=== PATIENT | female | born 1935 | race Caucasian/White ===

== ENCOUNTER 2018-06-10 18:08 | Inpatient (IN) | payer OTHER ==
[~2018-06-10] VITALS: Ht 157.5 cm; Wt 55.3 kg
[~2018-06-10 18:08] MED LIST: ASPIRIN81 M4 PO; CRESTOR10 M1 PO; LEVOTHYROXINE25 MCG PO; METOPROLOL TART25 M1 PO; XANAX0.25 M1 PO
[2018-06-10 18:51] LABS: ABSOLUTE BASOPHIL COUNT 0 /CUMM (0.0-0.2); ABSOLUTE EOSINOPHIL COUNT 0.2 /CUMM (0.0-0.7); ABSOLUTE GRANULOCYTE CT 3.5 /CUMM (1.4-6.5); ABSOLUTE LYMPH COUNT 2.1 /CUMM (1.2-3.4); ABSOLUTE MONOCYTE COUNT 0.6 /CUMM (0.10-0.60); BASOPHIL % 0.6 % (0.0-2.0); EOSINOPHIL % 3.4 % (0-5); HEMATOCRIT 39.9 % (37-47); MEAN CORPUSCULAR HGB 29.2 PG (27.0-31.0); MEAN CORPUSCULAR HGB CONC 33.2 G/DL (33.0-37.0); MEAN PLATELET VOLUME 8.7 FL (7.4-10.4); PLATELET COUNT 222 /CUMM (130-400); RBC DISTRIBUTION WIDTH 13.8 % (11.5-14.5); RED BLOOD CELL CT 4.54 /CUMM (4.20-5.40); WHITE BLOOD CELL COUNT 6.4 /CUMM (4.8-10.8)
--- NOTE | 2018-06-10 18:56 | RADIOLOGY REPORT ---
EXAMINATION: PORTABLE CHEST 1 VIEW CLINICAL INFORMATION: TIA PROTOCOL COMPARISON: 10/13/2008. TECHNIQUE: Portable frontal view of the chest was obtained. FINDINGS: The lungs are well expanded. Chronic appearing reticular markings are again seen but no superimposed focal infiltrate, effusion, edema, or pneumothorax. Cardiac and mediastinal silhouettes are within normal limits for technique. No acute bony abnormality seen. Degenerative changes in the spine and shoulders. IMPRESSION: Chronic appearing changes but no superimposed airspace disease.
--- NOTE | 2018-06-10 18:56 | CT SCAN REPORT ---
EXAMINATION: CT HEAD WITHOUT CONTRAST CLINICAL INFORMATION: Rule out CVA versus TIA. Symptoms now resolved. COMPARISON: None TECHNIQUE: Contiguous axial imaging was performed from the skull base to vertex without intravenous administration of contrast. DLP: 592 mGy-cm FINDINGS: There is no evidence of acute intracranial hemorrhage or territorial infarction. No abnormal mass effect or midline shift is seen. Negron to white matter differentiation is well preserved. No extra-axial fluid collections are identified. The ventricles are normal in size. Mild periventricular white matter hypoattenuation is suspicious for a degree of ischemic microangiopathy. Mild basal ganglia calcifications. The osseous structures and soft tissues are normal. Partial opacification of the sphenoid sinus. Mastoid air cells are aerated. IMPRESSION: No acute intracranial pathology. Nonacute findings as described above.
[2018-06-10 19:00] LABS: PT 12.2 SEC (9.4-12.5); PTT 28 SEC (25-37)
--- NOTE | 2018-06-10 19:19 | ED NEURO DEFICIT/STROKE ---
History of Present Illness General Chief Complaint: General Adult Stated Complaint: "FEELT SPACEY, SLURRED SPPECH AT 3PM" Source: patient, family, old records Exam Limitations: no limitations Vital Signs & Intake/Output Vital Signs & Intake/Output Vital Signs Date Time Temp Pulse Resp B/P B/P Pulse O2 O2 Flow FiO2 Mean Ox Delivery Rate 06/10 1816 98.2 84 18 170/78 97 Room Air Allergies Coded Allergies: Sulfa (Sulfonamide Antibiotics) (UNKNOWN 07/11/17) Reconcile Medications Alprazolam (Xanax) 0.25 MG TABLET 1 TAB PO BID PRN ANXIETY Aspirin (Aspirin*) 81 MG TAB.CHEW 1 TAB PO DAILY SC Levothyroxine Sodium 25 MCG TABLET 1 TAB PO DAILY HYPOTHYROID (Reported) Metoprolol Tartrate 25 MG TABLET 25 MG PO BID Blood Pressure Rosuvastatin Calcium (Crestor) 10 MG TABLET 1 TAB PO DAILY HIGH CHOLESTEROL ( Reported) Triage Note: PRESENTS TO THE ED FOR EVALUATION AFTER SHE EXPERIENCED AN EPISODE OF FAGINESS AT APPROXIMATELY 3PM. SHE WAS UNABLE TO SPEAK FOR LESS THAN A MINUTE AND SUDDENLY THE SYMPTOMS WENT AWAY. SHE WAS RECENTLY CHANGED FROM METOPROLOL TO BISOPROLOL-HCTZ. SHE REPORTS FEELING TIRED AND CONCERNED OTHERWISE SHE FEELS HER USUSAL SELF AT THIS TIME. Triage Nurses Notes Reviewed? yes HPI: Patient states that earlier today she stood up from her chair and felt out of it. Patient didn't answer the phone and could not get any words out. Patient states that she knew she wanted to say but nothing came out. Patient states those symptoms lasted just seconds and then they resolved. Patient then felt normal. Approximately an hour later her nephew called her and her nephew stated that she was slurring her words. Patient did not notice that she was slurring her words and she denied any weakness in her face or her arms. He then called back approximately 10 minutes later and the symptoms had resolved. Patient comes in for evaluation. Patient's only complaint currently is a sinus headache that she's had since she has woken up. Patient states she has chronic sinusitis and routinely gets sinus headaches. She states that this headache is. So much all of her prior headaches. She gets an achy sensation in the frontal part of her head. There is no radiation. The pain worsens when she leans forward. She rates the pain as moderate on the scale. Past History Travel History Traveled to [place] past 21 day No Medical History Any Pertinent Medical History? 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 No Review of Systems Review of Systems Constitutional: Reports: no symptoms. EENTM: Reports: no symptoms. Respiratory: Reports: no symptoms. Cardiovascular: Reports: no symptoms. GI: Reports: no symptoms. Genitourinary: Reports: no symptoms. Musculoskeletal: Reports: no symptoms. Skin: Reports: no symptoms. Neurological/Psychological: Reports: see HPI, headache. Hematologic/Endocrine: Reports: no symptoms. Immunologic/Allergic: Reports: no symptoms. All Other Systems: Reviewed and Negative Physical Exam Physical Exam General Appearance: well developed/nourished, alert, awake, anxious, mild distress Head: atraumatic, normal appearance Eyes: Bilateral: PERRL, EOMI. Ears, Nose, Throat: normal ENT inspection, moist mucous membrane, hearing grossly normal Neck: normal inspection, supple, full range of motion Respiratory: normal breath sounds, chest non-tender, no respiratory distress, lungs clear Cardiovascular: regular rate/rhythm, normal peripheral pulses Gastrointestinal: normal bowel sounds, soft, non-tender, no organomegaly Back: normal inspection, normal range of motion Extremities: normal range of motion Psychiatric: awake, alert, oriented x 3 Cranial Nerves: normal hearing, normal speech, PERRL Coordination/Gait: normal finger to nose, normal gait Motor/Sensory: no motor/sensory deficits Core Measures CVA/TIA Diagnosis: Yes NIH Stroke Scale NIH Stroke Scale Response Value Level of Consciousness alert 0 LOC Questions answers both correctly 0 LOC Commands obeys both correctly 0 Best Gaze normal 0 Visual Vee no visual loss 0 Facial Paresis normal 0 Motor Arm - Left no drift 0 Motor Arm - Right no drift 0 Motor Leg - Left no drift 0 Motor Leg - Right no drift 0 Limb Ataxia no ataxia 0 Sensory normal 0 Best Language no aphasia 0 Dysarthria normal articulation 0 Extinction and Inattention no neglect 0 Total 0 Date Last Known Well: 06/10/18 Time Last Known Well: 1500 Symptom Start Date: 06/10/18 Symptom Start Time: 1500 tPA Risk/Benefit discussion I have discussed the risks, benefits, and alternatives of Alteplase treatment including: - If given promptly, can resolve or have major improvement in stroke symptoms. - Bleeding (hemorrhage) is the most common risk that can occur. 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 - Alternative treatments with proven benefit for patients with stroke include aspirin and care in a specialized unit where staff members pay careful attention to a variety of basic aspects of care. tPA given? No Reason tPA not given Medical Contraindication Swallow Evaluation Pass Swallow eval time 1939 Sepsis Present: No Sepsis Focused Exam Completed? No Progress Differential Diagnosis: electrolyte imbalance, intracranial Hem., migraine LYMAN, stroke Plan of Care: Orders Procedure Date/time Status Heart Healthy Diet 06/11 B Active Patient Data 06/[address] in observation 06/10 2002 Active ED Holding Orders 06/10 2002 Active Vital Signs 06/10 2002 Active Code Status 06/10 2002 Active Saline Lock 06/10 1826 Active URINALYSIS 06/10 1826 Complete PARTIAL THROMBOPLASTIN TIME 06/10 1826 Complete PROTHROMBIN TIME 06/10 182 Complete COMPREHENSIVE METABOLIC PANEL 06/10 182 Complete CBC WITHOUT DIFFERENTIAL 06/10 1826 Complete EKG 06/10 181 Active Laboratory Tests 06/10/18 1902: Urinalysis LIGHT H, Urine Color YEL, Urine Clarity HAZY H, Urine pH 6.0, Ur Specific Clifford 1.025, Urine Protein NEG, Urine Ketones NEG, Urine Nitrite NEG, Urine Bilirubin NEG, Urine Urobilinogen 0.2, Ur Leukocyte Esterase SMALL H, Ur Microscopic SEDIMENT EXAMINED, Urine RBC 1-3, Urine WBC 5-10 H, Ur Epithelial Cells FEW, Urine Bacteria FEW H, Urine Mucus FEW, Urine Hemoglobin SMALL H, Urine Glucose NEG 06/10/18 1845: Anion Gap 8, Estimated GFR > 60, BUN/Creatinine Ratio 30.0 H, Glucose 141 H, Calcium 9.4, Total Bilirubin 0.2, AST 20, ALT 25, Alkaline Phosphatase 64, Total Protein 6.9, Albumin 4.0, Globulin 2.9, Albumin/Globulin Ratio 1.4, PT 12.2, INR 1.12, APTT 28, CBC w Diff NO MAN DIFF REQ, RBC 4.54, MCV 88.0, MCH 29.2, MCHC 33.2, RDW 13.8, MPV 8.7, Gran % 54.0, Lymphocytes % 32.5, Monocytes % 9.5 H, Eosinophils % 3.4, Basophils % 0.6, Absolute Granulocytes 3.5, Absolute Lymphocytes 2.1, Absolute Monocytes 0.6, Absolute Eosinophils 0.2, Absolute Basophils 0 Diagnostic Imaging: Viewed by Me: Radiology Read, CT Scan. Discussed w/RAD: Radiology Read, CT Scan. Radiology Impression: PATIENT: DERRICK MOREAU PRESENT AGE: 83 PATIENT ACCOUNT NO: [id number] : 34 LOCATION: [facility] ORDERING PHYSICIAN: Ramana Denney DO (TBS) SERVICE DATE: 06/10/18 EXAM TYPE: CAT - CT HEAD WO IV CONTRAST EXAMINATION: CT HEAD WITHOUT CONTRAST CLINICAL INFORMATION: Rule out CVA versus TIA. Symptoms now resolved. COMPARISON : None TECHNIQUE: Contiguous axial imaging was performed from the skull base to vertex without intravenous administration of contrast. DLP: 592 mGy-cm FINDINGS: There is no evidence of acute intracranial hemorrhage or territorial infarction. No abnormal mass effect or midline shift is seen. Negron to white matter differentiation is well preserved. No extra-axial fluid collections are identified. The ventricles are normal in size. Mild periventricular white matter hypoattenuation is suspicious for a degree of ischemic microangiopathy. Mild basal ganglia calcifications. The osseous structures and soft tissues are normal. Partial opacification of the sphenoid sinus. Mastoid air cells are aerated. IMPRESSION: No acute intracranial pathology. Nonacute findings as described above. DICTATED BY: Segun Cueva MD DATE/TIME DICTATED:06/10/181847 CATCHER HELPER:DOUG DATE/TIME TRANSCRIBED:06/10/181847 CONFIDENTIAL, DO NOT COPY WITHOUT APPROPRIATE AUTHORIZATION. <Electronically signed in Other Vendor System> SIGNED BY: Segun Cueva MD 06/10/181855 CXR Impression: PATIENT: DERRICK MOREAU PRESENT AGE: 83 PATIENT ACCOUNT NO: [id number] : 34 LOCATION: [facility] ORDERING PHYSICIAN: Ramana Denney DO (TBS) SERVICE DATE: 06/10/18 EXAM TYPE: RAD - XRY-PORTABLE CHEST XRAY EXAMINATION: PORTABLE CHEST 1 VIEW CLINICAL INFORMATION: TIA PROTOCOL COMPARISON: 10/13/2008. TECHNIQUE: Portable frontal view of the chest was obtained. FINDINGS: The lungs are well expanded. Chronic appearing reticular markings are again seen but no superimposed focal infiltrate , effusion, edema, or pneumothorax. Cardiac and mediastinal silhouettes are within normal limits for technique. No acute bony abnormality seen. Degenerative changes in the spine and shoulders. IMPRESSION: Chronic appearing changes but no superimposed airspace disease. DICTATED BY: Roger Alonso MD DATE/TIME DICTATED:06/10/181850 CATCHER HELPER:DOUG DATE/TIME TRANSCRIBED:1850 CONFIDENTIAL, DO NOT COPY WITHOUT APPROPRIATE AUTHORIZATION. < Electronically signed in Other Vendor System> SIGNED BY: Roger Alonso MD 06/10/181855 Initial ED EKG: NSR, LVH, nonspecific ST T wave chg Prior EKG: unchanged Departure Departure Disposition: STILL A PATIENT Condition: Stable Clinical Impression Primary Impression: TIA (transient ischemic attack) Referrals: David Kay MD Departure Forms: Customer Survey General Discharge Information Observation Note Spoke With: Elkin Baird MD Physician Advisor Notified: KAYLEY VICTOR,MARIXA Heard Patient In: Non-ED OBS Care Area Rationale for Observation: My rational for observation is as follows [telemetry observation, telemetry monitoring, neurology consultation, neuro checks, carotid ultrasound].
--- NOTE | 2018-06-10 20:16 | History & Physical ---
Valentin Butler 06/10/18 2015: General Information and HPI MD Statement: I have seen and personally examined DERRICK MOREAU and documented this H&P. The patient is a 83 year old F who presented with a patient stated chief complaint of slurred speech. Source of Information: patient History of Present Illness: Patient is a 83 year old female with past medical history of atrial tachycardia, chronic LBBB changes on EKG, HTN, HLD who came to the ED after noticing being confused and noted slurred speech by family member on the phone. Patient was in her usual state of health until 3 PM this afternoon where she stood up from her chair and felt to be dizzy and sat down which resolved within 30 seconds. At the same time, the phone rang and patient attempted to speak to a friend over the phone and noticed her speech was slurred which lasted approximately 1 minute. Patients symptoms resolved spontaneously afterwards. At 5PM, patients grandson had called the home and stated "you are speaking like you are drunk" and advised her to go to the hospital but not to drive herself. He called back within 2 minutes and noticed she was speaking normally. Patient was subsequently brought to the ED by her son. Patient states she had a recent change in her blood pressure medication prescribed by Dr. Jamison on May from metoprolol to Bisprolol-HCTZ 2.5-6.25. Patient was unsure of why her medication was changed since she monitors her pressures 3 times a week and noticed to be in 130s/70s range recently. In addition, she admits to discontinuing statin mediations 2 months ago. Patient claims she cannot tolerate the statins due to muscle pains. She has tried 3 different statin medications with no improvements with considerations of a weekly injection with minimal side effects in the future. She denied any associated chest pain, palpitations, loss of conciousness, facial droop, weakness or numbness or tingling of the extremities. Patient denies any sick contact at home or recent travel. Patient noted to have chronic sinus headaches for past 20 years under her eyes and forehead with associated runny nose. 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 She denies any alcohol, tobacco or illicit drug use. Patient last admitted in July 2017 for abdominal pain and hypertensive urgency found to have atrial tachycardia and elevated troponins likely secondary to demand ischemia. CT abdomen at that time was negative. PCP: Dr. Jamison Allergies/Medications Allergies: Coded Allergies: Sulfa (Sulfonamide Antibiotics) (UNKNOWN 07/11/17) Home Med list Aspirin (Aspirin*) 81 MG TAB.CHEW 1 TAB PO DAILY [place] Bisoprolol Fumarate/Hctz (Bisoprolol-Hctz 2.5-6.25 MG Tb) 2.5 MG-6.25 MG TABLET 1 TAB PO DAILY BP (Reported) Calcium Carbonate/Vitamin D3 (Calcium 500 + D Tablet) (Unknown Strength) TABLET (Unknown Dose) PO DAILY SUPPLEMENT (Reported) Cyanocobalamin (Vitamin B-12) (Unknown Strength) TABLET (Unknown Dose) PO DAILY SUPPLEMENT (Reported) Escitalopram Oxalate 10 MG TABLET 0.5 TAB PO DAILY ANXIETY (Reported) Fluticasone Propionate 50 MCG/ACTUATION SPRAY.SUSP 1 SPRAY NASB PRN ALLERGIES (Reported) Turmeric Root Extract (Turmeric) (Unknown Strength) CAPSULE (Unknown Dose) PO DAILY SUPPLEMENT (Reported) Past History Travel History Traveled to [place] past 21 day No Medical History Neurological: NONE EENT: NONE Cardiovascular: hypertension, hyperlipidemia Respiratory: NONE Gastrointestinal: NONE Hepatic: NONE Renal: NONE Musculoskeletal: osteoarthritis Psychiatric: NONE Blood Disorders: NONE Cancer(s): NONE PRISON CLASSIFICATION COUNSELOR/Reproductive: NONE History of MRSA: No History of VRE: No History of CDIFF: No Surgical History Surgical History: non-contributory Past Family/Social History Family History Relations & Conditions if any FATHER FH: uterine cancer MOTHER FH: bladder cancer SISTER FH: uterine cancer Relation not specified for: FH: cirrhosis Psychosocial History ETOH Use: denies use Illicit Drug Use: denies illicit drug use Functional Ability ADLs Independent: dressing, eating, toileting, bathing. Ambulation: independent IADLs Independent: shopping, housework, finances, food prep, telephone, transportation , medication admin. Review of Systems Review of Systems Constitutional: Denies: see HPI. Exam & Diagnostic Data Last 24 Hrs of Vital Signs/I&O Vital Signs Date Time Temp Pulse Resp B/P B/P Pulse O2 O2 Flow FiO2 Mean Ox Delivery Rate 06/10 2101 61 177/103 06/10 1816 98.2 84 18 170/78 97 Room Air Physical Exam General Appearance Alert, Oriented X3, Cooperative, No Acute Distress Skin No Rashes, No Breakdown HEENT PERRLA, EOMI, Mucous Membr. moist/pink Cardiovascular Regular Rate, Normal S1, Normal S2 Lungs Clear to Auscultation, Normal Air Movement Neurological Normal Gait, Normal Speech, Strength at 5/5 X4 Ext, Normal Tone, Sensation Intact, Cranial Nerves 3-12 NL, Reflexes 2+ Extremities No Clubbing, No Cyanosis, No Edema Vascular Normal Pulses, Pulses Symmetrical Last 24 Hrs of Labs/Anthony: Laboratory Tests 06/10/18 1902: Urinalysis LIGHT H, Urine Color YEL, Urine Clarity HAZY H, Urine pH 6.0, Ur Specific Hiram 1.025, Urine Protein NEG, Urine Ketones NEG, Urine Nitrite NEG, Urine Bilirubin NEG, Urine Urobilinogen 0.2, Ur Leukocyte Esterase SMALL H, Ur Microscopic SEDIMENT EXAMINED, Urine RBC 1-3, Urine WBC 5-10 H, Ur Epithelial Cells FEW, Urine Bacteria FEW H, Urine Mucus FEW, Urine Hemoglobin SMALL H, Urine Glucose NEG 06/10/18 1845: Anion Gap 8, Estimated GFR > 60, BUN/Creatinine Ratio 30.0 H, Glucose 141 H, Calcium 9.4, Total Bilirubin 0.2, AST 20, ALT 25, Alkaline Phosphatase 64, Total Protein 6.9, Albumin 4.0, Globulin 2.9, Albumin/Globulin Ratio 1.4, Triglycerides 217 H, Cholesterol 264 H, LDL Cholesterol, Calc 167 H, HDL Cholesterol 54, Cholesterol/HDL Ratio 5 H, PT 12.2, INR 1.12, APTT 28, CBC w Diff NO MAN DIFF REQ, RBC 4.54, MCV 88.0, MCH 29.2, MCHC 33.2, RDW 13.8, MPV 8.7 , Gran % 54.0, Lymphocytes % 32.5, Monocytes % 9.5 H, Eosinophils % 3.4, Basophils % 0.6, Absolute Granulocytes 3.5, Absolute Lymphocytes 2.1, Absolute Monocytes 0.6, Absolute Eosinophils 0.2, Absolute Basophils 0 Diagnostic Data EKG Results SR 78, Inc LBBB QRS 120 from previous 108; QTc 442 Assessment/Plan Assessment: Patient is a 83 year old female with pmh of atrial tachycardia, hypertension, hyperlipidemia who presented for an episode of confusion and noted slurred speech by family member through the phone. CT Head on admission negative for any acute intracranial pathology. Patient hypertensive in ED at 170/78 with manual blood pressure repeat of 155/75. No focal neurological deficits noted on exam. NIH score 0 in ED. Previous ECHO 07/2017 EF 60-65%. EMERGENCY DEPARTMENT: NIH Score: 0; Passed swallow evaluation at bedside Given loading dose of 325 ASA; KCL in D5 fluids to replete KK+ of 3.7 Vitals: 98.2, 84, 18, 170/78, 97% RA Labs: WBC: 6.4, Hgb: 13.3, HcT: 39.9, Plt: 222 Chemistry: Na: 139, K+ 3.7, Cl 103, CO2 28, BUN 21, Cr 0.7 UA: Negative EKG: SR, 78; Incomplete LBBB; No ST-T wave changes CXR: Chronic appearing changes but no superimposed airspace disease. HEAD CT: No acute intracranial pathology. Nonacute findings as described above. PROBLEM LIST: 1. Rule out TIA 2. Hypertension 3. Hyperlipidemia 4. Hypothyroidism PLAN: * Admit to telemetry for observation * q4 Neuro Checks * Neurology consulted * Consider MRI brain * PT/OT/Speech * Fall Precaution * Aspirin * Hold statin given patients history of myalgias with thesemedications * Vitals q shift; monitor BPs * Home medication: Bisoprolol-HCTZ 2.5-6.25; consider adjustment or change in medication Code Status: Full Code DVT PPx: Heparin SC Diet: Regular As Ranked By This Provider Problem List: 1. Hypertension 2. TIA (transient ischemic attack) Core Measures/Misc (07/23) Acute Coronary Syndrome ACS Diagnosis: No Congestive Heart Failure Congestive Heart Failure Diagnosis No Cerebrovascular Accident CVA/TIA Diagnosis: Yes Date Last Known Well: 06/10/18 Time Last Known Well: 1500 Symptom Start Date: 06/10/18 Symptom Start Time: 1500 Swallow Evaluation Pass VTE (View Protocol) VTE Risk Factors Age>40 No Mechanical VTE Prophylaxis d/t N/A MechProphylax Ordered No VTE Pharm Prophylaxis d/t NA PharmProphylax ordered Sepsis (View protocol) Sepsis Present: No If YES complete Sepsis Event Note If YES complete Sepsis Event Note Seda Covarrubias 06/10/18 2208: Core Measures/Misc (07/23) Sepsis (View protocol) If YES complete Sepsis Event Note If YES complete Sepsis Event Note Resident Review Statement Resident Statement: examined this patient, discussed with collector of internal revenue, agreed with collector of internal revenue Other Findings: Patient is an 80-year-old female with past medical history significant for hyperlipidemia-allergic to statins, hypertension, demand ischemia 07/23, came in from home with a chief complaint of having dizziness and slurred speech a day. Patient states that she woke up in her usual state of health, and 3 PM, while she was working on her computer, she noticed that she was very dizzy/feeling fuzzy when she got up from chair, she uncertain of 1 code at that time and noticed that her speech was garbled. This episode lasted around a couple of seconds and then improved. Around 5 PM, when patient's grandson called her, he noticed that her speech was slurred which improved within 5 minutes. Patient reports that all this time, she did not experience any weakness in her upper or lower extremities. She did not fall or lost her consciousness. She reports that she has never had similar complaint in the past. Review of system is negative for any headache/dizziness/chest pain/shortness of breath/abdominal discomfort lower extremity numbness/tingling/swelling or pain. Patient reports she had a diagnosis of hypothyroidism, however when she had her TSH/T4 checked at primary care physician without being on medication, it was normal and she was advised to not take levothyroxine anymore. Patient also reports that she has tried 3 different medicines for her cholesterol all of them give her myalgias. Labs and vitals as above CXR - chronic reticular markings CT head- no intra cranial pathology Problem list 1. TIA v/s vasovagal episode 2. hyperlipidemia 3. anxiety disorder 4. Hypertension Assessment and plan Patient symptoms and slurring of speech are likely to be due to an episode of TIA which lasted a couple of seconds. However it could also be due to orthostatic hypotension given that her symptoms appeared when she stood up from her chair. We will keep the patient on telemetry floor as an observation. Every 4 neuro checks. NIH stroke scale on admission 0. Patient will need neuro consult in a.m. Will obtain MRI brain. Her lipid panel reveals hyperlipidemia with cholesterol of 268 and LDL of 176, she states that she does not want to start any statins" antihyperlipidemics have given her myalgias. She should follow-up with her primary care physician to be considered for fenofibrate therapy given that she also has hypertriglyceridemia. We'll continue the patient on rest of the home meds including aspirin, Lexapro. Her antihypertensives can be switched to amlodipine 10 mg daily, patient states that she has never been on Norvasc and has never had lower extremity edema. Can be reevaluated in a.m. DVT prophylaxis subcutaneous Lovenox Patient is full code. Elkin Baird MD 06/11/18 0035: General Information and HPI MD Statement: I have seen and personally examined DERRICK MOREAU and documented this H&P. The patient is a 83 year old F who presented with a patient stated chief complaint of [syncope / altered mental status]. Source of Information: patient Past History Medical History Cardiovascular: hypertension, hyperlipidemia Musculoskeletal: osteoarthritis Past Family/Social History Psychosocial History Smoking Status: Never Smoked ETOH Use: denies use Illicit Drug Use: denies illicit drug use Employment History Employment Retired Review of Systems Review of Systems Constitutional: Reports: see HPI. Exam & Diagnostic Data Last 24 Hrs of Vital Signs/I&O Vital Signs Date Time Temp Pulse Resp B/P B/P Pulse O2 O2 Flow FiO2 Mean Ox Delivery Rate 06/10 2204 98.1 72 16 162/84 95 Room Air 06/10 2101 61 177/103 06/10 1816 98.2 84 18 170/78 97 Room Air Intake & Output 06/11 0800 06/11 0000 06/10 1600 Intake Total Output Total 200 Balance -200 Output, Urine 200 Patient 122 lb Weight Weight Reported by Patient Measurement Method Physical Exam General Appearance Alert, Oriented X3, Cooperative, No Acute Distress Skin No Rashes, No Breakdown Skin Temp/Moisture Exam: Warm/Dry Sepsis Skin Exam (color): Normal for Ethnicity HEENT Atraumatic, PERRLA, EOMI Neck Supple, No JVD Lymphatic Axillary nl, Cervical nl Cardiovascular Regular Rate, Normal S1, Normal S2 Lungs Clear to Auscultation, Normal Air Movement Abdomen Normal Bowel Sounds, Soft, No Tenderness Neurological Normal Gait, Normal Speech Extremities No Clubbing, No Cyanosis, No Edema Vascular Normal Pulses, Pulses Symmetrical Sepsis Peripheral Pulse Location: Dorsalis Pedis Sepsis Peripheral Pulse Exam: Normal Sepsis Cap Refill Exam: <2 Sec Last 24 Hrs of Labs/Anthony: Laboratory Tests 06/10/18 1902: Urinalysis LIGHT H, Urine Color YEL, Urine Clarity HAZY H, Urine pH 6.0, Ur Specific Hiram 1.025, Urine Protein NEG, Urine Ketones NEG, Urine Nitrite NEG, Urine Bilirubin NEG, Urine Urobilinogen 0.2, Ur Leukocyte Esterase SMALL H, Ur Microscopic SEDIMENT EXAMINED, Urine RBC 1-3, Urine WBC 5-10 H, Ur Epithelial Cells FEW, Urine Bacteria FEW H, Urine Mucus FEW, Urine Hemoglobin SMALL H, Urine Glucose NEG 06/10/18 1845: Anion Gap 8, Estimated GFR > 60, BUN/Creatinine Ratio 30.0 H, Glucose 141 H, Calcium 9.4, Total Bilirubin 0.2, AST 20, ALT 25, Alkaline Phosphatase 64, Total Protein 6.9, Albumin 4.0, Globulin 2.9, Albumin/Globulin Ratio 1.4, Triglycerides 217 H, Cholesterol 264 H, LDL Cholesterol, Calc 167 H, HDL Cholesterol 54, Cholesterol/HDL Ratio 5 H, PT 12.2, INR 1.12, APTT 28, CBC w Diff NO MAN DIFF REQ, RBC 4.54, MCV 88.0, MCH 29.2, MCHC 33.2, RDW 13.8, MPV 8.7 , Gran % 54.0, Lymphocytes % 32.5, Monocytes % 9.5 H, Eosinophils % 3.4, Basophils % 0.6, Absolute Granulocytes 3.5, Absolute Lymphocytes 2.1, Absolute Monocytes 0.6, Absolute Eosinophils 0.2, Absolute Basophils 0 Core Measures/Misc (07/23) Sepsis (View protocol) If YES complete Sepsis Event Note If YES complete Sepsis Event Note Attending MD Review Statement Attending Statement Attending MD Statement: examined this patient, discuss w/resident/PA/HOST AND HOSTESS, agreed w/resident/PA/HOST AND HOSTESS, reviewed EMR data (avail), amended to note Attending Assessment/Plan: This patient is an 83 year old female with a significant past medical history of atrial tachycardia, chronic LBBB, HTN, HLD who came to the ED after family noted confusion and slurred speech on the phone. She was in her usual state of health until 3 PM this afternoon when she stood up from her chair and felt to be dizzy and sat down which resolved within 30 seconds. At the same time, the phone rang and patient attempted to speak to a friend over the phone and noticed her speech was slurred (lasted approximately 1 minute). At 5PM, patients grandson had called the home and stated "you are speaking like you are drunk" and advised her to go to the hospital. He called back within 2 minutes and noticed she was speaking normally. Patient was subsequently brought to the ED by her son. Patient states she had a recent change in her blood pressure medication from metoprolol to Bisprolol-HCTZ 2.5-6.25. While in the ED she was noted to be hypertensive (170s over 80s), positive UA, BUN 21, CXR NAD, CT NAD, and EKG - SR, 78; Incomplete LBBB; No ST-T wave changes. Place in telemetry observation for syncope and hypertensive urgency, neurology consult, follow off antibiotics and MRI/MRA brain. Full Code.
[2018-06-10] MEDS ORDERED: VITAMIN B-121000 MC3 PO (20:23)
[2018-06-10] MEDS ORDERED: CALCIUM 500 +1 EAC5 PO (20:24)
[2018-06-10] MEDS ORDERED: TURMERIC500 M2 PO (20:24)
[2018-06-10] MEDS ORDERED: FLUTICASONE PRO16 GM NASB (20:24)
[2018-06-10] MEDS ORDERED: ESCITALOPRAM OX10 MG PO (20:25)
[2018-06-10] MEDS ORDERED: BISOPROLOL-HCT1 EACH PO (20:25)
--- NOTE | 2018-06-11 00:49 | History & Physical ---
General Information and [facility] MD Statement: I have seen and personally examined DERRICK MOREAU and documented this H&P. The patient is a 83 year old F who presented with a patient stated chief complaint of slurred speech. Source of Information: patient History of Present Illness: Ms. Moreau is an 83 y/o F H HTN and HLD who was brought to the ED by her son today for suspicion of having two transient ischemic attacks. Patient states she woke up, ran errands, was in her normal state of health, until about 3 pm when she had this sudden tired feeling while sitting at the computer. Shortly after, she heard the phone ring, got up from her chair to answer, and suddenly felt "foggy". She was able to walk and answer the phone without difficulty, but still feeling foggy. The listener told the patient that she "sounded like she was drunk." She said the she recognized that she didn't sound like her normal self, but that it only lasted for about 5-6 seconds, so she wasn't too concerned. 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 She commenced her normal routine without difficulty or recognized symptoms, then at around 5 pm this evening, the patient states she received a phone call from her grandson, who too stated that she "sounded drunk." She said the second time she was told, she again could hear that she wasn't able to talk clearly, but she was able to make full sentences and understand her sons speech. Throughout each episode, patient denies LOC, confusion, upper/lower extremity weakness, numbness, tingling, changes in vision, headache, bowel/bladder dysfunction. Patient expresses her concern for having started a new BP medication 3-4 weeks ago, Bisoprolol HCTZ 2.5/6.5 PO daily, stating she sometimes doesn't like the way it makes her feel. Patient has no other concerns at this time. In the ED, patient presented without any complaints. On admission, she was hypertensive at 170/78, vitals otherwise stable. CBC, coags, UA unremarkable. Labs significant for BUN/Cr 30H, triglycerides 217H, Cholesterol 264H, BGL 141H. EKG unchanged and negative for ACS. Patient was given ASA. Allergies/Medications Allergies: Coded Allergies: Sulfa (Sulfonamide Antibiotics) (UNKNOWN 07/11/17) Home Med list Aspirin (Aspirin*) 81 MG TAB.CHEW 1 TAB PO DAILY ID Bisoprolol Fumarate/Hctz (Bisoprolol-Hctz 2.5-6.25 MG Tb) 2.5 MG-6.25 MG TABLET 1 TAB PO DAILY BP (Reported) Calcium Carbonate/Vitamin D3 (Calcium 500 + D Tablet) (Unknown Strength) TABLET (Unknown Dose) PO DAILY SUPPLEMENT (Reported) Cyanocobalamin (Vitamin B-12) (Unknown Strength) TABLET (Unknown Dose) PO DAILY SUPPLEMENT (Reported) Escitalopram Oxalate 10 MG TABLET 0.5 TAB PO DAILY ANXIETY (Reported) Fluticasone Propionate 50 MCG/ACTUATION SPRAY.SUSP 1 SPRAY NASB PRN ALLERGIES (Reported) Turmeric Root Extract (Turmeric) (Unknown Strength) CAPSULE (Unknown Dose) PO DAILY SUPPLEMENT (Reported) Compliance With Home Meds: GOOD Past History Travel History Traveled to [place] past 21 day No Medical History Blood Transfusion Hx: No Neurological: NONE EENT: Menieres Cardiovascular: hypertension, hyperlipidemia Respiratory: NONE Gastrointestinal: NONE Hepatic: NONE Renal: NONE Musculoskeletal: osteoarthritis Psychiatric: anxiety Endocrine: Reports Clifton's thyroiditis, resolved 5 years ago Blood Disorders: NONE Cancer(s): NONE 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 Assisted Living Who Do You Live With? self Services at Home: None Smoking Status: Never Smoked ETOH Use: occasional use Illicit Drug Use: denies illicit drug use Other Social History: No recent travel, no sick contacts, no pets Functional Ability ADLs Independent: dressing, eating, toileting, bathing. Ambulation: independent IADLs Independent: shopping, housework, finances, food prep, telephone, transportation , medication admin. Employment History Employment Employed Review of Systems Review of Systems Constitutional: Reports: no symptoms. Denies: chills, diaphoresis, fever, malaise. EENTM: Reports: no symptoms. Denies: blurred vision, double vision, visual changes, ear discharge, ear pain, hearing changes, throat pain. Cardiovascular: Reports: no symptoms. Denies: chest pain, orthopena, palpitations, syncope. Respiratory: Reports: no symptoms. Denies: cough, short of breath. GI: Reports: no symptoms. Denies: abdominal pain, bowel incontinence, nausea, changes in stool, vomiting. Genitourinary: Reports: no symptoms. Denies: dysuria, urgency. Musculoskeletal: Reports: no symptoms. Denies: muscle stiffness. Skin: Reports: no symptoms. Denies: rash. Neurological/Psychological: Reports: no symptoms, headache (reports sinus pressure ), other. Denies: ataxia , cognitive dysfunction, confusion, numbness, paresthesia, tingling, unable to move lower ext, unable to move upper ext, weakness. All Other Systems: Reviewed and Negative Exam & Diagnostic Data Last 24 Hrs of Vital Signs/I&O Vital Signs Date Time Temp Pulse Resp B/P B/P Pulse O2 O2 Flow FiO2 Mean Ox Delivery Rate 06/10 2204 98.1 72 16 162/84 95 Room Air 06/10 2101 61 177/103 06/10 1816 98.2 84 18 170/78 97 Room Air Physical Exam General Appearance Alert, Oriented X3, Cooperative, No Acute Distress, Patient is sitting comfortably in bed while reading a book. Skin No Rashes Skin Temp/Moisture Exam: Warm/Dry Sepsis Skin Exam (color): Normal for Ethnicity HEENT Atraumatic, PERRLA, EOMI, Mucous Membr. moist/pink, Maxillary sinus tenderness to palpation Neck Supple, No JVD, +2 Carotid Pulse wo Bruit, No LAD Cardiovascular Regular Rate, No Murmurs, Gallops, Rubs Lungs Clear to Auscultation, Chest symmetric with respiration. Unlabored breathing. Abdomen Normal Bowel Sounds, Soft, No Tenderness Neurological Normal Speech, Strength at 5/5 X4 Ext, Sensation Intact, Cranial Nerves 3-12 NL Extremities No Clubbing, No Cyanosis, No Edema, Normal Pulses (+2 b/l radial, +2 b/l DP) Last 24 Hrs of Labs/Anthony: Laboratory Tests 06/10/18 1902: Urinalysis LIGHT H, Urine Color YEL, Urine Clarity HAZY H, Urine pH 6.0, Ur Specific Aiken 1.025, Urine Protein NEG, Urine Ketones NEG, Urine Nitrite NEG, Urine Bilirubin NEG, Urine Urobilinogen 0.2, Ur Leukocyte Esterase SMALL H, Ur Microscopic SEDIMENT EXAMINED, Urine RBC 1-3, Urine WBC 5-10 H, Ur Epithelial Cells FEW, Urine Bacteria FEW H, Urine Mucus FEW, Urine Hemoglobin SMALL H, Urine Glucose NEG 06/10/18 1845: Anion Gap 8, Estimated GFR > 60, BUN/Creatinine Ratio 30.0 H, Glucose 141 H, Calcium 9.4, Total Bilirubin 0.2, AST 20, ALT 25, Alkaline Phosphatase 64, Total Protein 6.9, Albumin 4.0, Globulin 2.9, Albumin/Globulin Ratio 1.4, Triglycerides 217 H, Cholesterol 264 H, LDL Cholesterol, Calc 167 H, HDL Cholesterol 54, Cholesterol/HDL Ratio 5 H, PT 12.2, INR 1.12, APTT 28, CBC w Diff NO MAN DIFF REQ, RBC 4.54, MCV 88.0, MCH 29.2, MCHC 33.2, RDW 13.8, MPV 8.7 , Gran % 54.0, Lymphocytes % 32.5, Monocytes % 9.5 H, Eosinophils % 3.4, Basophils % 0.6, Absolute Granulocytes 3.5, Absolute Lymphocytes 2.1, Absolute Monocytes 0.6, Absolute Eosinophils 0.2, Absolute Basophils 0 Diagnostic Data EKG Results SR 78, Inc LBBB QRS 120 from previous 108; QTc 442 CXR Results FINDINGS: The lungs are well expanded. Chronic appearing reticular markings are again seen but no superimposed focal infiltrate, effusion, edema, or pneumothorax. Cardiac and mediastinal silhouettes are within normal limits for technique. No acute bony abnormality seen. Degenerative changes in the spine and shoulders. IMPRESSION: Chronic appearing changes but no superimposed airspace disease. Other Results EXAMINATION: CT HEAD WITHOUT CONTRAST FINDINGS: There is no evidence of acute intracranial hemorrhage or territorial infarction. No abnormal mass effect or midline shift is seen. Negron to white matter differentiation is well preserved. No extra-axial fluid collections are identified. The ventricles are normal in size. Mild periventricular white matter hypoattenuation is suspicious for a degree of ischemic microangiopathy. Mild basal ganglia calcifications. The osseous structures and soft tissues are normal. Partial opacification of the sphenoid sinus. Mastoid air cells are aerated. IMPRESSION: No acute intracranial pathology. Nonacute findings as described above. Assessment/Plan Assessment: Ms. Moreau is an 83 y/o F PMH HTN and HLD who was brought to the ED by her son today for suspicion of having two transient ischemic attacks. Patient had a 5-6 second episode of slurred speech and "feeling foggy" that she and her close contacts recognized. The first episode was recognized after she ant from her chair, and the other was while she was sitting at home, both through phone conversation. There was no LOC, confusion, recognized paralysis, weakness, numbness/tingling, and she was aware of her slurred speech but was able to make full sentences and understand other's speech. On admission, she was hypertensive at 170/78. NIHSS 0. Neurological exam benign. Labs significant for BUN/Cr 30H, triglycerides 217H, Total Cholesterol 264H, LDL cholesterol 167H, BGL 141H. CT head negative for infarction. The patient's story including brief episodes of neurologic dysfunction and the clinical picture suggests that the patient suffered from a transient ischemic attack. The patient will be admitted to telemetry for monitoring and the team will request a consult with Neurology. Patient's who suffer a TIA have a high risk of CVA, in addition to other risk factors including age >60, elevated BP, elevated BGL, and speech disturbances, such as this patient. In order to prevent CVA from occurring, it is important to find the cause of her TIA. This patient has a history of hyperlipidemia and hypertension, all of which can cause TIA. She should also be monitored for cardiac dysrhythmias to rule out possible embolic etiology. Consider ordering an MRI, which has a higher sensitivity for detecting microinfarcts than CT. Patient should be monitored with inpatient telemetry to rule out cardiac source and/or dysrhythmias. Will follow up with neuro recommendations. Patient expressed her concern for starting the Bisprolol HCTZ 2.5/6.5. This is combination beta luly and thiazide diuretic. The patient has never taken a diuretic in the past. A common adverse reaction to HCTZ includes electrolyte imbalances such as hypokalemia, hypochloremia, hypomagnesemia, and hyponatremia. Monitor electrolytes, looks for EKG changes and drops in HR. Another common reaction to HCTZ is hypovolemia from excessive renal losses. Patient reports her symptoms occurred after she stood from her chair. Will assess for orthostatic hypotension. Will continue vitals and neuro checks around the clock. Continue home medications. Repeat CBC w/o diff and NMP in am. 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 Although the patient currently does not have any symptoms, should inform the patient that taking ASA and ASA containing medication can cause tinnitus. As Ranked By This Provider Problem List: 1. Hypertension 2. TIA (transient ischemic attack) 3. Anxiety Core Measures/Misc (07/23) Acute Coronary Syndrome ACS Diagnosis: No Congestive Heart Failure Congestive Heart Failure Diagnosis Yes Cerebrovascular Accident CVA/TIA Diagnosis: Yes Date Last Known Well: 06/10/18 Time Last Known Well: 1500 Symptom Start Date: 06/10/18 Symptom Start Time: 1500 Swallow Evaluation Pass VTE (View Protocol) VTE Risk Factors Age>40 No Mechanical VTE Prophylaxis d/t N/A MechProphylax Ordered No VTE Pharm Prophylaxis d/t NA PharmProphylax ordered Sepsis (View protocol) Sepsis Present: No If YES complete Sepsis Event Note If YES complete Sepsis Event Note
[2018-06-11 06:41] VITALS: BP 130/66
[2018-06-11 08:17] LABS: ABSOLUTE BASOPHIL COUNT 0 /CUMM (0.0-0.2); ABSOLUTE EOSINOPHIL COUNT 0.2 /CUMM (0.0-0.7); ABSOLUTE GRANULOCYTE CT 3.9 /CUMM (1.4-6.5); ABSOLUTE LYMPH COUNT 1.7 /CUMM (1.2-3.4); ABSOLUTE MONOCYTE COUNT 0.5 /CUMM (0.10-0.60); BASOPHIL % 0.5 % (0.0-2.0); EOSINOPHIL % 3.3 % (0-5); GRANULOCYTE % 62.2 % (42.2-75.2); HEMATOCRIT 37.8 % (37-47); MEAN CORPUSCULAR HGB 29.2 PG (27.0-31.0); MEAN CORPUSCULAR HGB CONC 33.2 G/DL (33.0-37.0); MEAN CORPUSCULAR VOLUME 87.8 FL (81.0-99.0); PLATELET COUNT 172 /CUMM (130-400); RBC DISTRIBUTION WIDTH 13.5 % (11.5-14.5); RED BLOOD CELL CT 4.31 /CUMM (4.20-5.40); WHITE BLOOD CELL COUNT 6.3 /CUMM (4.8-10.8)
--- NOTE | 2018-06-11 08:55 | Cons- Neurology ---
General Information and HPI Consulting Request Date of Consult: 06/11/18 Requested By: Elkin Baird MD Reason for Consult: TIA History of Present Illness: Healthy active 83-year-old woman had at least 2 episodes of slurred speech yesterday, both appreciated by people to whom she was speaking on the phone, but not necessarily appreciated by the patient, who believes symptoms lasted several seconds at most. She lives alone and was home alone all day yesterday. She states she did her own neuro checks by looking in the mirror and checking her face etc. and felt fine, so did not want to come to the hospital. Ultimately, at her grandson and son's insistence, she was taken to the ED for further evaluation and was subsequently admitted. She has had no recurrence of slurred speech. She does set denied associated visual changes, facial droop, limb weakness, vision changes, chewing or swallowing difficulties, chest pain or palpitations. No gait difficulties. Today she reports a "sinus headache" States her BP med was recently switched from metoprolol to bisoprolol. She takes a daily aspirin. She states she has tried at least 3 statins but is unable to tolerate them due to myalgias. Her hemmer chainstitch is Dr. Evans. Allergies/Medications Allergies: Coded Allergies: Sulfa (Sulfonamide Antibiotics) (UNKNOWN 07/11/17) Home Med List: Aspirin (Aspirin*) 81 MG TAB.CHEW [address] Bisoprolol Fumarate/Hctz (Bisoprolol-Hctz 2.5-6.25 MG Tb) 2.5 MG-6.25 MG TABLET 1 TAB PO DAILY BP (Reported) Calcium Carbonate/Vitamin D3 (Calcium 500 + D Tablet) (Unknown Strength) TABLET (Unknown Dose) PO DAILY SUPPLEMENT (Reported) Cyanocobalamin (Vitamin B-12) (Unknown Strength) TABLET (Unknown Dose) PO DAILY SUPPLEMENT (Reported) Escitalopram Oxalate 10 MG TABLET 0.5 TAB PO DAILY ANXIETY (Reported) Fluticasone Propionate 50 MCG/ACTUATION SPRAY.SUSP 1 SPRAY NASB PRN ALLERGIES (Reported) Turmeric Root Extract (Turmeric) (Unknown Strength) CAPSULE (Unknown Dose) PO DAILY SUPPLEMENT (Reported) Current Medications: Current Medications Sig/Ronald Start time Last Medication Dose Route Stop Time Status Admin Acetaminophen 650 MG Q8P PRN 06/10 2100 AC PO Aspirin 81 MG DAILY 08/06 0900 AC PO Aspirin 0 .STK-MED ONE 06/10 2037 DC PO Aspirin 325 MG ONCE ONE 06/10 1930 DC 06/10 PO 06/10 Enoxaparin Sodium 40 MG DAILY 06/11 900 AC SC Escitalopram Oxalate 5 MG DAILY 06/11 900 DC PO Escitalopram Oxalate 5 MG AT BEDTIME 06/10 220 AC 06/11 PO 0104 Fluticasone 1 SPRAY BID 06/10 2100 AC Propionate BRICE Potassium Chloride 20 MEQ .Q6H40M 06/10 183 DC Dextrose/Sodium 1,000 ML IV Chloride Review of Systems Review of Systems: REVIEW OF SYSTEMS: (-) = negative / normal blank = not discussed Neurologic: see HPI Eyes: 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, followed by her wool hat hydraulicker ENT: (-) Constitutional: (-) CV: (-) Respiratory: (-) /Renal: (-) Musculoskeletal: (-) Skin: (-) Psychiatric: (-) Heme: (-) GI: (-) Allergy/Immune: (-) Endocrine: (-) Other: (-) Past History Travel History Traveled to [place] past 21 day No Medical History Blood Transfusion Hx: No Neurological: NONE EENT: Menieres Cardiovascular: hypertension, hyperlipidemia Respiratory: NONE Gastrointestinal: NONE Hepatic: NONE Renal: NONE Musculoskeletal: osteoarthritis Psychiatric: anxiety Endocrine: Reports Clifton's thyroiditis, resolved 5 years ago Blood Disorders: NONE Cancer(s): NONE 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 Assisted Living Who Do You Live With? self Services at Home: None Smoking Status: Never Smoked ETOH Use: occasional use Illicit Drug Use: denies illicit drug use Other Social History: No recent travel, no sick contacts, no pets Functional Ability ADLs Independent: dressing, eating, toileting, bathing. Ambulation: independent IADLs Independent: shopping, housework, finances, food prep, telephone, transportation , medication admin. Employment History Employment: Employed Profession/Employer: [employer] Exam & Diagnostic Data Vital Signs and I&O Vital Signs Date Time Temp Pulse Resp B/P B/P Pulse O2 O2 Flow FiO2 Mean Ox Delivery Rate 08/06 0641 98.7 71 18 130/66 98 Room Air 06/10 2204 98.1 72 16 162/84 95 Room Air 06/10 2101 61 177/103 06/10 1816 98.2 84 18 170/78 97 Room Air Intake & Output 06/11 1600 06/11 0800 06/11 0000 Intake Total 0 Output Total 200 Balance 0 -200 Intake, Oral 0 Output, Urine 200 Patient 122 lb Weight Weight Reported by Patient Measurement Method Physical Exam: PHYSICAL EXAMINATION: nl = normal NT or blank = not tested GENERAL Appearance: nl Head: nl Eyes: nl ENT: nl Neck: nl Carotids: nl Lungs: nl Heart: nl Extremities: nl Spine: nl NEUROLOGIC MENTAL STATUS Level of consciousness: nl Orientation: nl Attention / Concentration: nl Memory: nl Fund of Knowledge: nl Speech / Language: nl NEUROLOGIC CRANIAL NERVES I: Olfaction: NT II: Optic nerves: nl Visual narvaez: nl III: Pupils: nl Levator palpebrae: nl III, IV, : Ocular alignment: nl Extraocular motility: nl Pursuits/ saccades: nl V: Facial sensation: nl Masseter/Pterygoids: nl VII: Facial Motor: nl VIII: Hearing (finger rub): nl IX, X: Uvula and palate: nl XI: SCM, Upper trap.: nl XII: Tongue: nl MOTOR / NEUROMUSCULAR Bulk: nl Tone: nl Strength: nl Rapid alternating movements: nl Fine motor movements: nl Abnormal / involuntary movements: none CEREBELLAR / COORDINATION: intact SENSATION: intact DTR's symmetrically trace to 1+ PLANTARS: flexor on R, extensor on L GAIT: not tested Last 48 Hours of Lab Results: Laboratory Tests 06/11 1902 Chemistry Sodium (137 - 145 mmol/L) 139 Potassium (3.5 - 5.1 mmol/L) 4.1 Chloride (98 - 107 mmol/L) 103 Carbon Dioxide (22 - 30 mmol/L) 30 Anion Gap (5 - 16) 6 BUN (7 - 17 mg/dL) 15 Creatinine (0.5 - 1.0 mg/dL) 0.6 Estimated GFR (>60 ml/min) > 60 BUN/Creatinine Ratio (7 - 25 %) 25.0 Hematology CBC w Diff NO MAN DIFF REQ WBC (4.8 - 10.8 /CUMM) 6.3 RBC (4.20 - 5.40 /CUMM) 4.31 Hgb (12.0 - 16.0 G/DL) 12.6 Hct (37 - 47 %) 37.8 MCV (81.0 - 99.0 FL) 87.8 MCH (27.0 - 31.0 PG) 29.2 MCHC (33.0 - 37.0 G/DL) 33.2 RDW (11.5 - 14.5 %) 13.5 Plt Count (130 - 400 /CUMM) 172 MPV (7.4 - 10.4 FL) 10.0 Gran % (42.2 - 75.2 %) 62.2 Lymphocytes % (20.5 - 51.1 %) 26.3 Monocytes % (1.7 - 9.3 %) 7.7 Eosinophils % (0 - 5 %) 3.3 Basophils % (0.0 - 2.0 %) 0.5 Absolute Granulocytes (1.4 - 6.5 /CUMM) 3.9 Absolute Lymphocytes (1.2 - 3.4 /CUMM) 1.7 Absolute Monocytes (0.10 - 0.60 /CUMM) 0.5 Absolute Eosinophils (0.0 - 0.7 /CUMM) 0.2 Absolute Basophils (0.0 - 0.2 /CUMM) 0 Urines Urinalysis LIGHT H Urine Color (YEL,AMB,STR) YEL Urine Clarity (CLEAR) HAZY H Urine pH (5.0 - 8.0) 6.0 Ur Specific Kite (1.001 - 1.035) 1.025 Urine Protein (NEG,<30 MG/DL) NEG Urine Ketones (NEG) NEG Urine Nitrite (NEG) NEG Urine Bilirubin (NEG) NEG Urine Urobilinogen (0.1 - 1.0 EU/dl) 0.2 Ur Leukocyte Esterase (NEG) SMALL H Ur Microscopic SEDIMENT EXAMINED Urine RBC (0 - 5 /HPF) 1-3 Urine WBC (0 - 2 /HPF) 5-10 H Ur Epithelial Cells (NONE,FEW) FEW Urine Bacteria (NEG/NONE) FEW H Urine Mucus (FEW,NONE) FEW Urine Hemoglobin (NEG) SMALL H Urine Glucose (N MG/DL) NEG 06/10 1845 Chemistry Sodium (137 - 145 mmol/L) 139 Potassium (3.5 - 5.1 mmol/L) 3.7 Chloride (98 - 107 mmol/L) 103 Carbon Dioxide (22 - 30 mmol/L) 28 Anion Gap (5 - 16) 8 BUN (7 - 17 mg/dL) 21 H Creatinine (0.5 - 1.0 mg/dL) 0.7 Estimated GFR (>60 ml/min) > 60 BUN/Creatinine Ratio (7 - 25 %) 30.0 H Glucose (65 - 99 mg/dL) 141 H Calcium (8.4 - 10.2 mg/dL) 9.4 Total Bilirubin (0.2 - 1.3 mg/dL) 0.2 AST (14 - 36 U/L) 20 ALT (9 - 52 U/L) 25 Alkaline Phosphatase (<127 U/L) 64 Total Protein (6.3 - 8.2 g/dL) 6.9 Albumin (3.5 - 5.0 g/dL) 4.0 Globulin (1.9 - 4.2 gm/dL) 2.9 Albumin/Globulin Ratio (1.1 - 2.2 %) 1.4 Triglycerides (<150 mg/dL) 217 H Cholesterol (<200 MG/DL) 264 H LDL Cholesterol, Calc (65 - 129 mg/dL) 167 H HDL Cholesterol (40 - 60 mg/dL) 54 Cholesterol/HDL Ratio (0.00 - 4.23 %) 5 H Coagulation PT (9.4 - 12.5 SEC) 12.2 INR (0.90 - 1.19) 1.12 APTT (25 - 37 SEC) 28 Hematology CBC w Diff NO MAN DIFF REQ WBC (4.8 - 10.8 /CUMM) 6.4 RBC (4.20 - 5.40 /CUMM) 4.54 Hgb (12.0 - 16.0 G/DL) 13.3 Hct (37 - 47 %) 39.9 MCV (81.0 - 99.0 FL) 88.0 MCH (27.0 - 31.0 PG) 29.2 MCHC (33.0 - 37.0 G/DL) 33.2 RDW (11.5 - 14.5 %) 13.8 Plt Count (130 - 400 /CUMM) 222 MPV (7.4 - 10.4 FL) 8.7 Gran % (42.2 - 75.2 %) 54.0 Lymphocytes % (20.5 - 51.1 %) 32.5 Monocytes % (1.7 - 9.3 %) 9.5 H Eosinophils % (0 - 5 %) 3.4 Basophils % (0.0 - 2.0 %) 0.6 Absolute Granulocytes (1.4 - 6.5 /CUMM) 3.5 Absolute Lymphocytes (1.2 - 3.4 /CUMM) 2.1 Absolute Monocytes (0.10 - 0.60 /CUMM) 0.6 Absolute Eosinophils (0.0 - 0.7 /CUMM) 0.2 Absolute Basophils (0.0 - 0.2 /CUMM) 0 Imaging/Other Studies: Head CT 06-10-18: FINDINGS: There is no evidence of acute intracranial hemorrhage or territorial infarction. No abnormal mass effect or midline shift is seen. Negron to white matter differentiation is well preserved. No extra-axial fluid collections are identified. The ventricles are normal in size. Mild periventricular white matter hypoattenuation is suspicious for a degree of *ischemic microangiopathy. Mild basal ganglia calcifications. The osseous structures and soft tissues are normal. Partial opacification of the sphenoid sinus. Mastoid air cells are aerated. IMPRESSION: No acute intracranial pathology. Nonacute findings as described above. Assessment/Plan Assessment: This is a healthy active 83-year-old woman who stroke risk factors include hypertension and hyperlipidemia. (also has hx atrial tachycardia, no known Afib. CT shows evidence of small vessel disease. Currently her neurologic examination is normal. Recommendations: Check a carotid ultrasound and an echocardiogram Telemetry and cardiology consultation Would switch from aspirin to either Aggrenox or Plavix for secondary stroke prevention. As she states she suffers from headaches intermittently, I would favor the use of Plavix, as the dipyridamole and Aggrenox can worsen headaches Ideally, statin, but she reports intolerance . Consult Acknowledgment - Thank you for your consult request.
--- NOTE | 2018-06-11 11:10 | PN- Att Addend ---
Attending Addendum Attending Brief Note Pt seen and examined. Discussed with resident. She is an 83-year-old female with a past medical history of hypertension, hyperlipidemia, atrial tachycardia and previous left bundle who is here with TIA symptoms. Her antihypertensive regimen was recently changed. She is seen by neurology who is recommending changing her from aspirin to Plavix, getting an echo and cardiology eval and we have an MRI pending.
--- NOTE | 2018-06-11 12:09 | MRI REPORT ---
EXAMINATION: MR BRAIN WITHOUT CONTRAST CLINICAL INFORMATION: TIA. Assess for ischemic stroke. COMPARISON: CT scan of the head 06/10/2018. TECHNIQUE: MRI of the brain without contrast was obtained using routine sequences. FINDINGS: No diffusion abnormalities are identified to suggest an acute or subacute infarct. No mass effect or midline shift is seen. The ventricles and sulci are slightly commensurately prominent consistent with mild diffuse volume loss. There are extensive areas of T2 and FLAIR hyperintensity in the periventricular and subcortical white matter, consistent with extensive chronic microvascular ischemic disease. No extra-axial fluid collections are seen. The brainstem and cerebellum are normal. No pathologic magnetic susceptibility artifact is identified on the gradient refocused acquisition. The craniovertebral junction, marrow signal, and midline structures are normal. The major intracranial flow-voids at the level of the [place] are preserved. The dural venous sinus flow-voids are maintained. There have been bilateral lens extractions. The mastoid air cells and paranasal sinuses are well-aerated. IMPRESSION: 1. There are no acute bleeds or infarcts. No masses are demonstrated. 2. There is diffuse volume loss and there are extensive chronic microvascular ischemic changes.
--- NOTE | 2018-06-11 12:09 | ULTRASOUND REPORT ---
EXAMINATION: DUPLEX BILATERAL CAROTID ULTRASOUND CLINICAL INFORMATION: TIA. COMPARISON: None. TECHNIQUE: Duplex bilateral carotid US was performed using real-time ultrasound and Doppler techniques (integrating B-mode 2D vascular images, Doppler spectral analysis and color flow Doppler imaging). These techniques were utilized to interrogate the extracranial carotid and vertebral arteries bilaterally. The degree of stenosis is based off criteria similar to NASCET. FINDINGS: 1. On the right: Echogenic plaque is present at the carotid bifurcation but velocity measurements are normal and do not suggest a stenosis of greater than 50% diameter reduction in the right ICA. The vertebral artery is patent demonstrating antegrade flow. 2. On the left: A small amount of echogenic plaque is present at the carotid bifurcation but velocity measurements are normal and do not suggest a stenosis of greater than 50% diameter reduction in the left ICA. The vertebral artery is patent demonstrating antegrade flow. The external carotid arteries appear unremarkable. IMPRESSION: Plaque is present in the internal carotid arteries but velocity measurements are normal and there is no evidence to suggest a hemodynamically significant stenosis of greater than 50% diameter reduction.
[2018-06-11] MEDS ORDERED: PLAVIX75 M1 PO (12:29)
--- NOTE | 2018-06-11 12:36 | Patient Discharge Instructions ---
Discharge Instructions General Discharge Information You were seen/treated for: Slurring of speech, for possible TIA. On telemetry monitoring we found that patient is on acute atrial fibrillation with rapid ventricular rate. We treated conservatively with medication. Watch for these problems: bleeding, Palpitations, dizziness, chest pain, blurring of vision, slurring of speech. Stroke like symtpoms Special Instructions: Please follow up with PCP with in a week of discharge. Please follow up with filter worker with in a week of discharge. Please follow up with a neurologist with a month, or if you started getting neurological deficit or stroke like symptoms. Please take the medication as advised. Please watch for the bleeding. May use fitbit for to monitor HR Diet Recommended Diet: Heart Healthy Activity Activity Self Limited: Yes (As tolerated) Acute Coronary Syndrome Inclusion Criteria At DC or during hospital stay patient has or had the following: ACS DIAGNOSIS No Discharge Core Measures Meds if any: Prescribed or Continued at Discharge Meds if any: NOT Prescribed or Continued at Discharge Congestive Heart Failure Inclusion Criteria At DC or during hospital stay patient has or had the following: CHF DIAGNOSIS No Discharge Core Measures Meds if any: Prescribed or Continued at Discharge Meds if any: NOT Prescribed or Continued at Discharge Cerebrovascular accident Inclusion Criteria At DC or during hospital stay patient has or had the following: CVA/TIA Diagnosis No Discharge Core Measures Meds if any: Prescribed or Continued at Discharge Antithrombotic Yes Statin (required if LDL =>70) No Meds if any: NOT Prescribed or Continued at Discharge No Statin d/t Statin Not Tolerated Venous thromboembolism Inclusion Criteria VTE Diagnosis No VTE Type NONE VTE Confirmed by (Test) NONE Discharge Core Measures - Per Current guidelines, there needs to be overlap - treatment for the first 5 days of Warfarin therapy. - If discharged on Warfarin prior to 5 days of - overlap therapy, the patient will need to be - assessed for post discharge needs including - *Post discharge parental anticoagulation - *Warfarin and/or parental anticoagulation education - *Follow up date to check INR post discharge At least 5 days overlap therapy as Inpatient No Meds if any: Prescribed or Continued at Discharge Note: Overlap Therapy is Warfarin and Anticoagulant Meds if any: NOT Prescribed or Continued at Discharge
--- NOTE | 2018-06-11 12:39 | Cons- Cardiology ---
General Information and HPI Consulting Request Date of Consult: 06/11/18 Requested By: Sunil Loaiza MD Reason for Consult: TIA, afib Source of Information: patient Exam Limitations: no limitations History of Present Illness: 83-year-old female past medical history hypertension, hyperlipidemia admitted initially with slurred speech that has since resolved, likely TIA. Audiology consult called for arrhythmia seen on telemetry. Patient denies chest pain, palpitations, dyspnea, lightheadedness/dizziness, PND /orthopnea, lower cavity swelling. The pt still works, and her free time like to [employer]. 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 At the time of this history patient states that she feels like her normal self, with no further symptoms or slurred speech. Allergies/Medications Allergies: Coded Allergies: Sulfa (Sulfonamide Antibiotics) (UNKNOWN 07/11/17) Home Med List: Aspirin (Aspirin*) 81 MG TAB.CHEW 1 TAB PO DAILY AL Bisoprolol Fumarate/Hctz (Bisoprolol-Hctz 2.5-6.25 MG Tb) 2.5 MG-6.25 MG TABLET 1 TAB PO DAILY BP (Reported) Calcium Carbonate/Vitamin D3 (Calcium 500 + D Tablet) (Unknown Strength) TABLET (Unknown Dose) PO DAILY SUPPLEMENT (Reported) Cyanocobalamin (Vitamin B-12) (Unknown Strength) TABLET (Unknown Dose) PO DAILY SUPPLEMENT (Reported) Escitalopram Oxalate 10 MG TABLET 0.5 TAB PO DAILY ANXIETY (Reported) Fluticasone Propionate 50 MCG/ACTUATION SPRAY.SUSP 1 SPRAY NASB PRN ALLERGIES (Reported) Turmeric Root Extract (Turmeric) (Unknown Strength) CAPSULE (Unknown Dose) PO DAILY SUPPLEMENT (Reported) Current Medications: Current Medications Sig/Ronald Start time Last Medication Dose Route Stop Time Status Admin Acetaminophen 650 MG Q8P PRN 06/10 2100 AC PO Aspirin 81 MG DAILY 06/11 900 DC 06/11 PO 55 Aspirin 0 .STK-MED ONE 06/10 2037 DC PO Aspirin 325 MG ONCE ONE 06/10 1930 DC 06/10 PO 06/10 Clopidogrel Bisulfate 75 MG DAILY 06/11 1224 AC PO Enoxaparin Sodium 40 MG DAILY 06/11 900 AC 06/11 SC 0856 Escitalopram Oxalate 5 MG DAILY 08/06 0900 DC PO Escitalopram Oxalate 5 MG AT BEDTIME 06/10 2200 AC 06/11 PO 0104 Fluticasone 1 SPRAY BID 06/10 2100 AC 06/11 Propionate BRICE 0856 Lorazepam 1 MG ONCE ONE 06/11 1030 DC 06/11 IV 06/11 1031 1032 Patient Medication 1 ED ONE ONE 06/11 1230 AC Teaching ED 06/11 1231 Potassium Chloride 20 MEQ .Q6H40M 06/10 1830 DC Dextrose/Sodium 1,000 ML IV Chloride Review of Systems Review of Systems: As per HPI. 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 Assisted Living Who Do You Live With? self Services at Home: None Smoking Status: Never Smoked ETOH Use: occasional use Illicit Drug Use: denies illicit drug use Other Social History: No recent travel, no sick contacts, no pets Functional Ability ADLs Independent: dressing, eating, toileting, bathing. Ambulation: independent IADLs Independent: shopping, housework, finances, food prep, telephone, transportation , medication admin. 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 Exam & Diagnostic Data Vital Signs and I&O Vital Signs Date Time Temp Pulse Resp B/P B/P Pulse O2 O2 Flow FiO2 Mean Ox Delivery Rate 06/11 641 98.7 71 18 130/66 98 Room Air 06/10 2204 98.1 72 16 162/84 95 Room Air 06/10 2101 61 177/103 06/10 1816 98.2 84 18 170/78 97 Room Air Intake & Output 06/11 1600 06/11 0800 / 0000 06/10 1600 06/10 0806/10 0000 Intake Total 0 Output Total 200 Balance 0 -200 Intake, Oral 0 Output, Urine 200 Patient 55.338 kg Weight Weight Reported by Patient Measurement Method Physical Exam: General: no apparent distress HEENT: NCAT, NO JVD Heart: s1s2, irregular rhythm, no MRG Lungs: CTA b/l Abd: soft, nt Ext: no peripheral edema Neuro: A&Ox3, no gross focal deficits Labs/Anthony Results: Laboratory Tests 06/11 06/10 0618 1902 Chemistry Sodium (137 - 145 mmol/L) 139 Potassium (3.5 - 5.1 mmol/L) 4.1 Chloride (98 - 107 mmol/L) 103 Carbon Dioxide (22 - 30 mmol/L) 30 Anion Gap (5 - 16) 6 BUN (7 - 17 mg/dL) 15 Creatinine (0.5 - 1.0 mg/dL) 0.6 Estimated GFR (>60 ml/min) > 60 BUN/Creatinine Ratio (7 - 25 %) 25.0 Hematology CBC w Diff NO MAN DIFF REQ WBC (4.8 - 10.8 /CUMM) 6.3 RBC (4.20 - 5.40 /CUMM) 4.31 Hgb (12.0 - 16.0 G/DL) 12.6 Hct (37 - 47 %) 37.8 MCV (81.0 - 99.0 FL) 87.8 MCH (27.0 - 31.0 PG) 29.2 MCHC (33.0 - 37.0 G/DL) 33.2 RDW (11.5 - 14.5 %) 13.5 Plt Count (130 - 400 /CUMM) 172 MPV (7.4 - 10.4 FL) 10.0 Gran % (42.2 - 75.2 %) 62.2 Lymphocytes % (20.5 - 51.1 %) 26.3 Monocytes % (1.7 - 9.3 %) 7.7 Eosinophils % (0 - 5 %) 3.3 Basophils % (0.0 - 2.0 %) 0.5 Absolute Granulocytes (1.4 - 6.5 /CUMM) 3.9 Absolute Lymphocytes (1.2 - 3.4 /CUMM) 1.7 Absolute Monocytes (0.10 - 0.60 /CUMM) 0.5 Absolute Eosinophils (0.0 - 0.7 /CUMM) 0.2 Absolute Basophils (0.0 - 0.2 /CUMM) 0 Urines Urinalysis LIGHT H Urine Color (YEL,AMB,STR) YEL Urine Clarity (CLEAR) HAZY H Urine pH (5.0 - 8.0) 6.0 Ur Specific [place] (1.001 - 1.035) 1.025 Urine Protein (NEG,<30 MG/DL) NEG Urine Ketones (NEG) NEG Urine Nitrite (NEG) NEG Urine Bilirubin (NEG) NEG Urine Urobilinogen (0.1 - 1.0 EU/dl) 0.2 Ur Leukocyte Esterase (NEG) SMALL H Ur Microscopic SEDIMENT EXAMINED Urine RBC (0 - 5 /HPF) 1-3 Urine WBC (0 - 2 /HPF) 5-10 H Ur Epithelial Cells (NONE,FEW) FEW Urine Bacteria (NEG/NONE) FEW H Urine Mucus (FEW,NONE) FEW Urine Hemoglobin (NEG) SMALL H Urine Glucose (N MG/DL) NEG 06/10 1845 Chemistry Sodium (137 - 145 mmol/L) 139 Potassium (3.5 - 5.1 mmol/L) 3.7 Chloride (98 - 107 mmol/L) 103 Carbon Dioxide (22 - 30 mmol/L) 28 Anion Gap (5 - 16) 8 BUN (7 - 17 mg/dL) 21 H Creatinine (0.5 - 1.0 mg/dL) 0.7 Estimated GFR (>60 ml/min) > 60 BUN/Creatinine Ratio (7 - 25 %) 30.0 H Glucose (65 - 99 mg/dL) 141 H Calcium (8.4 - 10.2 mg/dL) 9.4 Total Bilirubin (0.2 - 1.3 mg/dL) 0.2 AST (14 - 36 U/L) 20 ALT (9 - 52 U/L) 25 Alkaline Phosphatase (<127 U/L) 64 Total Protein (6.3 - 8.2 g/dL) 6.9 Albumin (3.5 - 5.0 g/dL) 4.0 Globulin (1.9 - 4.2 gm/dL) 2.9 Albumin/Globulin Ratio (1.1 - 2.2 %) 1.4 Triglycerides (<150 mg/dL) 217 H Cholesterol (<200 MG/DL) 264 H LDL Cholesterol, Calc (65 - 129 mg/dL) 167 H HDL Cholesterol (40 - 60 mg/dL) 54 Cholesterol/HDL Ratio (0.00 - 4.23 %) 5 H Coagulation PT (9.4 - 12.5 SEC) 12.2 INR (0.90 - 1.19) 1.12 APTT (25 - 37 SEC) 28 Hematology CBC w Diff NO MAN DIFF REQ WBC (4.8 - 10.8 /CUMM) 6.4 RBC (4.20 - 5.40 /CUMM) 4.54 Hgb (12.0 - 16.0 G/DL) 13.3 Hct (37 - 47 %) 39.9 MCV (81.0 - 99.0 FL) 88.0 MCH (27.0 - 31.0 PG) 29.2 MCHC (33.0 - 37.0 G/DL) 33.2 RDW (11.5 - 14.5 %) 13.8 Plt Count (130 - 400 /CUMM) 222 MPV (7.4 - 10.4 FL) 8.7 Gran % (42.2 - 75.2 %) 54.0 Lymphocytes % (20.5 - 51.1 %) 32.5 Monocytes % (1.7 - 9.3 %) 9.5 H Eosinophils % (0 - 5 %) 3.4 Basophils % (0.0 - 2.0 %) 0.6 Absolute Granulocytes (1.4 - 6.5 /CUMM) 3.5 Absolute Lymphocytes (1.2 - 3.4 /CUMM) 2.1 Absolute Monocytes (0.10 - 0.60 /CUMM) 0.6 Absolute Eosinophils (0.0 - 0.7 /CUMM) 0.2 Absolute Basophils (0.0 - 0.2 /CUMM) 0 Diagnostic Data EKG Results NSR, incomplete LBBB/nonspecific IVCD Other Results TTE: 07/12/2017 - Normal overall left ventricular systolic function. Upper septal thickening. No definitive segmental wall motion abnormalities. No significant valvular abnormalities. telemetry personally reviewed: Period of atrial flutter with variable AV conduction and slow ventricular response, currently in atrial fibrillation rate well controlled in the 80s bpm Assessment/Plan Assessment/Plan 1. TIA 2. paroxysmal atrial fibrillation/flutter, newly diagnosed not previously on anticoagulation 3. HTN 4. HLD The patient is currently in atrial fibrillation. Not in RVR, hemodynamically stable. Asymptomatic. [id number] 6. Long-term full dose anticoagulation is indicated. However, in light of recent ischemic event, recommend follow-up with neurology for appropriate time to initiate anticoagulation. Please obtain repeat transthoracic echocardiogram. In the absence of any mitral stenosis, patient will be a likely candidate for treatment with a DOAC such as Eliquis. Please check a TSH. If patient remains in atrial fibrillation, can consider BRANDI/direct current cardioversion. Please continue with telemetry. Consult Acknowledgment - Thank you for your consult request.
--- NOTE | 2018-06-11 13:36 | PN-Observation ---
Observation Note Observation Note _ I have personally examined DERRICK MOREAU Ms. is an 83-year-old old female with past medical history of hypertension, HLD, atrial tachycardia, who presented to the ER with history of slurring of speech while talking on the phone with her grandson. The episode lasted for 30 seconds and she was back to normal. This morning she was doing well, no complaints, no neurological deficits. Assessment/Plan Medical Assessment: Ms. Crawford is an 83-year-old female, past medical history space HTN and HLD, atrial tachycardia brought to ER for TIA. Cardiology consult called for arrhythmia seen on telemetry. NIH Score: 0; Passed swallow evaluation at bedside Given loading dose of 325 ASA; KCL in D5 fluids to replete KK+ of 3.7 Vitals: 98.2, 84, 18, 170/78, 97% RA Labs: WBC: 6.4, Hgb: 13.3, HcT: 39.9, Plt: 222 Chemistry: Na: 139, K+ 3.7, Cl 103, CO2 28, BUN 21, Cr 0.7 UA: Negative EKG: SR, 78; Incomplete LBBB; No ST-T wave changes CXR: Chronic appearing changes but no superimposed airspace disease. HEAD CT: No acute intracranial pathology. Nonacute findings as described above. Problem List: 1. Afib Assessment/Plan Not in RVR, hemodynamically stable and Asymptomatic, [id number] - Anticoagulation started after neurology follow up due to TIA Check TSH Cardiology Suggested BRANDI / cardioversion if patient remains in A fib f/u echo 2. TIA (transient ischemic attack) Assessment/Plan Monitor in telemetry Neurology consulted MRI Brain - negative for infarcts Carotif ultrasound- stenosis <50% Change from aspirin to plavix as per neurology 3. Hypertension 4. Hyperlipidemia DVT/Prophylaxis: pharmacological Subjective Follow-up For: TIA Complaints: pain scale (0-10) (Slurring speech) Subjective: Patient feels fine, no history of any further episodes suggestive of TIA Review of Systems Constitutional: Reports: see HPI. Objective Last 24 Hrs of Vital Signs/I&O Vital Signs Date Time Temp Pulse Resp B/P B/P Pulse O2 O2 Flow FiO2 Mean Ox Delivery Rate 06/11 1600 Room Air 06/11 1525 98.4 83 18 112/62 96 Room Air 06/11 0641 98.7 71 18 130/66 98 Room Air 06/10 2204 98.1 72 16 162/84 95 Room Air 06/10 2101 61 177/103 Intake & Output 06/11 1600 06/11 0800 06/11 0000 Intake Total 400 0 Output Total 600 200 Balance -200 0 -200 Intake, Oral 400 0 Output, Urine 600 200 Patient 122 lb Weight Weight Reported by Patient Measurement Method Physical Exam General Appearance: normal Cardiovascular: Normal S1, Normal S2, No Murmurs Lungs: Clear to Auscultation Abdomen: Soft, No Masses Neurological: Normal Gait, Normal Speech, Strength at 5/5 X4 Ext, Normal Tone, Sensation Intact, Cranial Nerves 3-12 NL, Reflexes 2+ Extremities: No Tenderness/Swelling Current Medications: Current Medications Sig/Ronald Start time Last Medication Dose Route Stop Time Status Admin Acetaminophen 650 MG Q8P PRN 06/10 2100 AC PO Apixaban 2.5 MG BID 06/11 2100 AC PO Aspirin 81 MG DAILY 06/12 900 AC PO Aspirin 81 MG DAILY 06/11 900 DC 06/11 PO 0855 Aspirin 0 .STK-MED ONE 06/10 2037 DC PO Aspirin 325 MG ONCE ONE 06/10 1930 DC 06/10 PO 06/10 193 2038 Clopidogrel Bisulfate 75 MG DAILY 06/11 1224 DC 06/11 PO 1329 Enoxaparin Sodium 40 MG DAILY 06/11 0900 DC 06/11 SC 0856 Escitalopram Oxalate 5 MG DAILY 06/11 900 DC PO Escitalopram Oxalate 5 MG AT BEDTIME 06/10 2200 AC 06/11 PO 0104 Fluticasone 1 SPRAY BID 06/10 2100 AC 06/11 Propionate BRICE 0856 Lorazepam 1 MG ONCE ONE 06/11 1030 DC 06/11 IV 06/11 1031 1032 Patient Medication 1 ED ONE ONE 06/11 1230 DC Teaching ED 06/11 1231 Potassium Chloride 20 MEQ .Q6H40M 06/10 1830 DC Dextrose/Sodium 1,000 ML IV Chloride Last 24 Hrs of Labs/Mics: Laboratory Tests 06/11/1818: Anion Gap 6, Estimated GFR > 60, BUN/Creatinine Ratio 25.0, TSH 4.130, Free T4 1.04, Total T3 1.21, CBC w Diff NO MAN DIFF REQ, RBC 4.31, MCV 87.8, MCH 29.2, MCHC 33.2, RDW 13.5, MPV 10.0, Gran % 62.2, Lymphocytes % 26.3, Monocytes % 7.7, Eosinophils % 3.3, Basophils % 0.5, Absolute Granulocytes 3.9, Absolute Lymphocytes 1.7, Absolute Monocytes 0.5, Absolute Eosinophils 0.2, Absolute Basophils 0 06/10/18 1902: Urinalysis LIGHT H, Urine Color YEL, Urine Clarity HAZY H, Urine pH 6.0, Ur Specific [place] 1.025, Urine Protein NEG, Urine Ketones NEG, Urine Nitrite NEG, Urine Bilirubin NEG, Urine Urobilinogen 0.2, Ur Leukocyte Esterase SMALL H, Ur Microscopic SEDIMENT EXAMINED, Urine RBC 1-3, Urine WBC 5-10 H, Ur Epithelial Cells FEW, Urine Bacteria FEW H, Urine Mucus FEW, Urine Hemoglobin SMALL H, Urine Glucose NEG 06/10/18 1845: Anion Gap 8, Estimated GFR > 60, BUN/Creatinine Ratio 30.0 H, Glucose 141 H, Calcium 9.4, Total Bilirubin 0.2, AST 20, ALT 25, Alkaline Phosphatase 64, Total Protein 6.9, Albumin 4.0, Globulin 2.9, Albumin/Globulin Ratio 1.4, Triglycerides 217 H, Cholesterol 264 H, LDL Cholesterol, Calc 167 H, HDL Cholesterol 54, Cholesterol/HDL Ratio 5 H, PT 12.2, INR 1.12, APTT 28, CBC w Diff NO MAN DIFF REQ, RBC 4.54, MCV 88.0, MCH 29.2, MCHC 33.2, RDW 13.8, MPV 8.7 , Gran % 54.0, Lymphocytes % 32.5, Monocytes % 9.5 H, Eosinophils % 3.4, Basophils % 0.6, Absolute Granulocytes 3.5, Absolute Lymphocytes 2.1, Absolute Monocytes 0.6, Absolute Eosinophils 0.2, Absolute Basophils 0
[2018-06-11 15:25] VITALS: BP 112/62
[2018-06-11 18:30] VITALS: BP 118/64
[2018-06-11 22:49] VITALS: BP 128/62
--- NOTE | 2018-06-12 05:24 | PN- Housestaff ---
Cameron Giraldo [place] 06/12/18 0458: Subjective Follow-up For: TIA Subjective: Patient feels much better, denies any palpitation, S OB, chest pain Review of Systems Constitutional: Reports: see HPI. Objective Last 24 Hrs of Vital Signs/I&O Vital Signs Date Time Temp Pulse Resp B/P B/P Pulse O2 O2 Flow FiO2 Mean Ox Delivery Rate 06/12 0000 Room Air 06/11 2249 98.7 88 18 128/62 95 Room Air 06/11 1830 120 20 118/64 95 Room Air 06/11 1600 Room Air 06/11 1525 98.4 83 18 112/62 96 Room Air 06/11 0641 98.7 71 18 130/66 98 Room Air Intake & Output 06/12 0800 06/12 0000 06/11 1600 Intake Total 480 400 Output Total 600 Balance 480 -200 Intake, Oral 480 400 Number 1 Bowel Movements Output, Urine 600 Physical Exam General Appearance: Alert, Oriented X3, Cooperative, No Acute Distress Cardiovascular: Regular Rate, No Murmurs Lungs: Clear to Auscultation, Normal Air Movement Abdomen: Normal Bowel Sounds, Soft, No Tenderness, No Hepatospenomegaly, No Masses Neurological: Normal Speech, Strength at 5/5 X4 Ext, Normal Tone, Sensation Intact Extremities: No Clubbing, No Cyanosis, No Edema, Normal Pulses, No Tenderness/ Swelling Vascular: Normal Pulses Current Medications: Current Medications Sig/Ronald Start time Last Medication Dose Route Stop Time Status Admin Acetaminophen 650 MG Q8P PRN 06/10 2100 AC PO Apixaban 2.5 MG BID 06/11 2100 AC 06/12 PO 0956 Aspirin 81 MG DAILY 06/12 900 AC 06/12 PO 0957 Diltiazem HCl 30 MG ONCE ONE 06/12 1245 DC 06/12 PO 06/12 1246 1254 Diltiazem HCl 30 MG Q6 06/12 1200 AC 06/12 PO 1029 Diltiazem HCl 125 MG Q24H 06/12 1000 CAN Sodium Chloride 100 ML IV Escitalopram Oxalate 5 MG AT BEDTIME 06/10 2200 AC 06/11 PO 213 Fluticasone 1 SPRAY BID 06/10 2100 AC 06/11 Propionate BRICE 2133 Hydrochlorothiazide 12.5 MG BID PRN 06/12 0953 AC PO Hydrochlorothiazide 12.5 MG BID 06/12 0946 DC PO Assessment/Plan Assessment: 83 year old patient had presented to the hospital for slurring of speech, likely TIA. In the hospital patient was admitted in the telemetry and had an episode of Arrhythmia- atrial fib, 1. Afib Assessment/Plan had RVR, hemodynamically stable and Asymptomatic, [id number] - Anticoagulation started after neurology follow up due to TIA -for RVRCardizem 30 mg per oral 4 times daily TSH normal Cardiology Suggested BRANDI / cardioversion tomorrow echo-normal 2. TIA (transient ischemic attack) Assessment/Plan Monitor in telemetry Neurology consulted MRI Brain - negative for infarcts Carotif ultrasound- stenosis <50% 3. Hypertension DC amlodipine, start hydrochlorothiazide 4. Hyperlipidemia Problem List: 1. Afib NO RVR so far, monitor telemetry patient is scheduled for telemetry STarted on eliquis for Possible BRANDI/Cardioversion if patient remains in A fib as per Cardiology Patient is NPO 2. TIA (transient ischemic attack) TSH has been normal, carotid doppler showed insignificant stenosis awaiting echo Patient is on aspirin, planning to switch to plavix Pain Ratin Pain Location: none Pain Goal: Remain pain free Pain Plan: none Tomorrow's Labs & Rationales: none Sunil Loaiza MD 06/12/18 1220: Attending MD Review Statement Attending Statement Attending MD Statement: examined this patient, discuss w/resident/PA/[employer]ER, agreed w/resident/PA/[employer] OFF[employer]ER, reviewed EMR data (avail) Attending Assessment/Plan: 83F PMH HTN, HLD, presenting initially with 2 episodes of slurred speech with intact neurological exam since admission, found also to be in new onset rapid atrial fibrillation, intermittently in RVR. Patient is currently stable, asymptomatic, normal neuro exam. She remains in atrial fibrillation. MRI head negative. 1. New onset atrial fibrillation 2. TIA Plan - Continue on telemetry - Continue Cardizem 30mg q6h, titrate up as needed for rate control and as blood pressure allows - Continue ASA and Eliquis - NPO after midnight for BRANDI/cardioversion - Cannot tolerate statin, however would obtain records to see which have been tried - Continue home medications
[2018-06-12 06:53] VITALS: BP 156/72
--- NOTE | 2018-06-12 08:56 | ECHOCARDIOGRAM REPORT ---
DERRICK MOREAU Age: 83 : 1935 Gender: F Exam Date: 06/11/2018 18:27 Exam Location: [place] Ht (in): 62 Wt (lb): 122 BSA: 1.56 BP: 130 / 66 Ordering Physician: Lelo Jimenez MD Referring Physician: Brandon Hernandez MD Technologist: Blanca Jarquin [facility] Room Number: [id number] Indications: Afib/flutter, TIA Rhythm: Atrial fibrillation Technical Quality: Fair FINDINGS Left Ventricle Normal size left ventricle. No obvious regional wall motion abnormalities. Normal left ventricular ejection fraction visually estimated at 60-65 %. Normal left ventricular diastolic filling pattern for age. Right Ventricle Right ventricle not well visualized, grossly normal. Right Atrium Normal right atrial size. Left Atrium Normal left atrial size. Mitral Valve Structurally normal mitral valve. Trace to mild mitral regurgitation. No mitral stenosis. Aortic Valve Trileaflet aortic valve. Diffuse thickening (sclerosis) of the aortic valve cusps without reduced excursion. No aortic stenosis. Tricuspid Valve Tricuspid valve not well visualized. Mild tricuspid regurgitation. Right ventricular systolic pressure estimated to be within the normal range at 26 mmHg. Pulmonic Valve Pulmonic valve not well visualized. Trace pulmonic regurgitation. Pericardium Minimal pericardial effusion (normal variant). Great Vessels Normal size aortic root and proximal ascending aorta. CONCLUSIONS Normal size left ventricle. No obvious regional wall motion abnormalities. Normal left ventricular ejection fraction visually estimated at 60-65 %. Normal left ventricular diastolic filling pattern for age. Diffuse thickening (sclerosis) of the aortic valve cusps without reduced excursion. No aortic stenosis. Mild tricuspid regurgitation. Right ventricular systolic pressure estimated to be within the normal range at [address] Brandon Hernandez (Electronically Signed) Final Date: 12 June 2018 08:52 MEASUREMENTS (Male / Female) Normal Values 2D ECHO LV Diastolic Diameter PLAX 3.3 cm 4.2 - 5.9 / 3.9 - 5.3 cm LV Systolic Diameter PLAX 2.1 cm 2.1 - 4.0 cm LV Fractional Shortening PLAX 36.4 % 25 - 46 % LV Ejection Fraction 2D Teich 67.4 % IVS Diastolic Thickness 1.0 cm LVPW Diastolic Thickness 1.0 cm LV Relative Wall Thickness 0.6 RV Internal Dim ED PLAX 2.0 cm 1.9 - 3.8 cm LVOT Diameter 1.9 cm Aortic Root Diameter 3.1 cm LA Systolic Diameter LX 3.2 cm 3.0 - 4.0 / 2.7 - 3.8 cm LA Volume 41.0 cm 18 - 58 / 22 - 52 cm Ascending Aorta Diameter 2.8 cm DOPPLER AV Peak Velocity 111.0 cm/s AV Peak Gradient 4.9 mmHg AV Mean Velocity 82.1 cm/s AV Mean Gradient 3.0 mmHg AV Velocity Time Integral 21.2 cm LVOT Peak Velocity 69.2 cm/s LVOT Peak Gradient 1.9 mmHg LVOT Mean Velocity 45.4 cm/s LVOT Mean Gradient 1.0 mmHg LVOT Velocity Time Integral 13.9 cm LVOT Stroke Volume 39.4 cm AV Area Cont Eq vti 1.9 cm AV Area Cont Eq pk 1.8 cm MV Peak Velocity 111.0 cm/s MV Peak Gradient 4.9 mmHg MV Mean Velocity 55.8 cm/s MV Mean Gradient 2.0 mmHg Mitral E Point Velocity 97.2 cm/s MV PHT Velocity 119.0 cm/s MV Deceleration Tillman 519.0 cm/s MV Pressure Half Time 68.8 ms MV Area PHT 3.2 cm MV Deceleration Time 174.0 ms TR Peak Velocity 246.0 cm/s TR Peak Gradient 24.2 mmHg Right Atrial Pressure 5.0 mmHg Pulmonary Artery Systolic Pressure 29.2 mmHg Right Ventricular Systolic Pressure 29.2 mmHg PV Peak Velocity 75.2 cm/s PV Peak Gradient 2.3 mmHg PV Mean Velocity 48.2 cm/s PV Mean Gradient 1.0 mmHg PV Velocity Time Integral 13.4 cm LV E' Lateral Velocity 15.5 cm/s Mitral E to LV E' Lateral Ratio 6.3 LV E' Septal Velocity 18.0 cm/s Mitral E to LV E' Septal Ratio 5.4
[2018-06-12 09:51] VITALS: BP 122/72
--- NOTE | 2018-06-12 09:58 | PN- Cardiology ---
Subjective Subjective: Patient seen at bedside. She denies chest pain, palpitations, dyspnea, PND orthopnea. She does report some anxiety. Objective Vital Signs and I&Os Vital Signs Date Time Temp Pulse Resp B/P B/P Pulse O2 O2 Flow FiO2 Mean Ox Delivery Rate 06/12 0951 122/72 / 0653 98.0 67 12 156/72 97 Room Air 06/12 0000 Room Air 06/11 2249 98.7 88 18 128/62 95 Room Air / 1830 120 20 118/64 95 Room Air / 1600 Room Air 06/11 1525 98.4 83 18 112/62 96 Room Air Intake & Output 06/12 1600 06/12 08/ 0000 06/11 1600 06/11 0800 06/11 0000 Intake Total 480 400 0 Output Total 600 200 Balance 480 -200 0 -200 Intake, Oral 480 400 0 Number 1 Bowel Movements Output, Urine 600 200 Patient 55.338 kg Weight Weight Reported by Patient Measurement Method Physical Exam: General: no apparent distress HEENT: NCAT, NO JVD Heart: s1s2, irregular rhythm, no MRG Lungs: CTA b/l Abd: soft, nt Ext: no peripheral edema Neuro: A&Ox3, no gross focal deficits Current Medications: Current Medications Sig/Ronald Start time Last Medication Dose Route Stop Time Status Admin Acetaminophen 650 MG Q8P PRN 06/10 2100 AC PO Apixaban 2.5 MG BID 06/11 2100 AC 06/11 PO 2135 Aspirin 81 MG DAILY 06/12 900 AC PO Aspirin 81 MG DAILY 06/11 900 DC 06/11 PO 0855 Clopidogrel Bisulfate 75 MG DAILY 06/11 1224 DC 06/11 PO 1329 Diltiazem HCl 125 MG Q24H 06/12 1000 AC Sodium Chloride 100 ML IV Enoxaparin Sodium 40 MG DAILY 06/11 09 DC 06/11 SC 0856 Escitalopram Oxalate 5 MG AT BEDTIME 06/10 2200 AC 06/11 PO 2132 Fluticasone 1 SPRAY BID 06/10 2100 AC 06/11 Propionate BRICE 2133 Hydrochlorothiazide 12.5 MG BID 06/12 0946 AC PO Lorazepam 1 MG ONCE ONE 06/11 1030 DC 08 IV 06/11 1031 1032 Patient Medication 1 ED ONE ONE 06/11 1230 DC Teaching ED 06/11 1231 Results Last 48 Hrs of Labs/Mics: Laboratory Tests 06/11/18 0618: Anion Gap 6, Estimated GFR > 60, BUN/Creatinine Ratio 25.0, TSH 4.130, Free T4 1.04, Total T3 1.21, CBC w Diff NO MAN DIFF REQ, RBC 4.31, MCV 87.8, MCH 29.2, MCHC 33.2, RDW 13.5, MPV 10.0, Gran % 62.2, Lymphocytes % 26.3, Monocytes % 7.7, Eosinophils % 3.3, Basophils % 0.5, Absolute Granulocytes 3.9, Absolute Lymphocytes 1.7, Absolute Monocytes 0.5, Absolute Eosinophils 0.2, Absolute Basophils 0 06/10/18 1902: Urinalysis LIGHT H, Urine Color YEL, Urine Clarity HAZY H, Urine pH 6.0, Ur Specific [place]verse 1.025, Urine Protein NEG, Urine Ketones NEG, Urine Nitrite NEG, Urine Bilirubin NEG, Urine Urobilinogen 0.2, Ur Leukocyte Esterase SMALL H, Ur Microscopic SEDIMENT EXAMINED, Urine RBC 1-3, Urine WBC 5-10 H, Ur Epithelial Cells FEW, Urine Bacteria FEW H, Urine Mucus FEW, Urine Hemoglobin SMALL H, Urine Glucose NEG 06/10/18 1845: Anion Gap 8, Estimated GFR > 60, BUN/Creatinine Ratio 30.0 H, Glucose 141 H, Calcium 9.4, Total Bilirubin 0.2, AST 20, ALT 25, Alkaline Phosphatase 64, Total Protein 6.9, Albumin 4.0, Globulin 2.9, Albumin/Globulin Ratio 1.4, Triglycerides 217 H, Cholesterol 264 H, LDL Cholesterol, Calc 167 H, HDL Cholesterol 54, Cholesterol/HDL Ratio 5 H, PT 12.2, INR 1.12, APTT 28, CBC w Diff NO MAN DIFF REQ, RBC 4.54, MCV 88.0, MCH 29.2, MCHC 33.2, RDW 13.8, MPV 8.7 , Gran % 54.0, Lymphocytes % 32.5, Monocytes % 9.5 H, Eosinophils % 3.4, Basophils % 0.6, Absolute Granulocytes 3.5, Absolute Lymphocytes 2.1, Absolute Monocytes 0.6, Absolute Eosinophils 0.2, Absolute Basophils 0 Recent Imaging Studies: TTE 06/11/2018: Normal size left ventricle. No obvious regional wall motion abnormalities. Normal left ventricular ejection fraction visually estimated at 60-65 %. Normal left ventricular diastolic filling pattern for age. Diffuse thickening (sclerosis) of the aortic valve cusps without reduced excursion. No aortic stenosis. Mild tricuspid regurgitation. Right ventricular systolic pressure estimated to be within the normal range at 26 mmHg. Telemetry personally reviewed: A. fib with RVR Assessment/Plan Assessment/Plan 1. TIA 2. paroxysmal atrial fibrillation/flutter, newly diagnosed not previously on anticoagulation 3. HTN 4. HLD The patient is currently in atrial fibrillation, intermittently in RVR overnight. Pt is hemodynamically stable with labile blood pressures. She remains asymptomatic. [id number] 6. TTE showed normal LV function. Continue with Eliquis 2.5 mg p.o. twice daily. Would discontinue amlodipine, start Cardizem 30 mg p.o. every 6 hours, titrated to normotension and heart rate less than 110 bpm. Would transition to long-acting Cardizem prior to discharge. Please keep patient n.p.o. at midnight for BRANDI/cardioversion tomorrow. Continue telemetry? Yes
[2018-06-12 14:44] VITALS: BP 110/54
[2018-06-12 21:32] VITALS: BP 106/60
--- NOTE | 2018-06-13 05:23 | PN- Housestaff ---
Cameron Giraldo 06/13/18 0522: Subjective Follow-up For: TIA, Atrial fibrillation in normal HR Complaints: no complaints Tele-Events Since Last Visit: sinus pause overnight, HR - 40 Subjective: Patient was examined bedside while lying in bed. She said she was anxious about cardioversion but would undergo cardioversion anyway to get better. But she had no symptoms overnight Review of Systems Constitutional: Reports: no symptoms, see HPI. Cardiovascular: Denies: chest pain, edema, orthopena, palpitations, peripheral edema, syncope. Respiratory: Denies: cough, hemoptysis, orthopnea, short of breath, sputum production, stridor, wheezing. Gastrointestinal: Denies: abdominal pain, constipation, diarrhea, bowel incontinence, melena, nausea. Genitourinary: Denies: discharge, dysuria. Musculoskeletal: Reports: no symptoms. Objective Last 24 Hrs of Vital Signs/I&O Vital Signs Date Time Temp Pulse Resp B/P B/P Pulse O2 O2 Flow FiO2 Mean Ox Delivery Rate 06/13 0019 79 132/68 06/13 0000 Nasal Cannula 06/12 2132 98.2 79 16 106/60 94 Room Air 06/12 1800 98 110/54 06/12 1444 98.2 98 16 110/54 95 Room Air 06/12 1254 134 142/82 06/12 1029 166 142/58 06/12 0951 122/72 06/12 0653 98.0 67 12 156/72 97 Room Air Intake & Output 06/13 0800 06/13 0000 06/12 1600 Intake Total 400 600 Output Total Balance 400 600 Intake, Oral 400 600 Physical Exam General Appearance: Alert, Oriented X3, Cooperative, No Acute Distress Cardiovascular: Regular Rate, No Murmurs Lungs: Clear to Auscultation, Normal Air Movement Abdomen: Normal Bowel Sounds, Soft, No Tenderness, No Hepatospenomegaly, No Masses Neurological: Normal Speech, Strength at 5/5 X4 Ext, Normal Tone, Sensation Intact Extremities: No Clubbing, No Cyanosis, No Edema, Normal Pulses, No Tenderness/ Swelling Current Medications: Current Medications Sig/Ronald Start time Last Medication Dose Route Stop Time Status Admin Acetaminophen 650 MG Q8P PRN 06/10 2100 AC PO Apixaban 2.5 MG BID 06/11 2100 AC 06/12 PO 2009 Aspirin 81 MG DAILY 06/12 900 AC 06/12 PO 0957 Diltiazem HCl 30 MG ONCE ONE 06/12 1245 DC 06/12 PO 06/12 1246 1254 Diltiazem HCl 30 MG Q6 06/12 1200 AC 06/13 PO 0019 Diltiazem HCl 125 MG Q24H 06/12 1000 CAN Sodium Chloride 100 ML IV Escitalopram Oxalate 5 MG AT BEDTIME 06/10 2200 AC 06/12 PO 2008 Fluticasone 1 SPRAY BID 06/10 2100 AC 06/12 Propionate BRICE 2010 Hydrochlorothiazide 12.5 MG BID PRN 06/12 0953 AC PO Hydrochlorothiazide 12.5 MG BID 06/12 0946 DC PO Last 24 Hrs of Lab/Anthony Results Last 24 Hrs of Labs/Mics: Laboratory Tests 06/13/18904: Anion Gap 6, Estimated GFR > 60, BUN/Creatinine Ratio 24.3 06/13/1832: PT 13.8 H, INR 1.26 H, CBC w Diff NO MAN DIFF REQ, RBC 4.35, MCV 87.2, MCH 29.9, MCHC 34.3, RDW 13.6, MPV 9.7, Gran % 48.1, Lymphocytes % 39.5, Monocytes % 7.2, Eosinophils % 4.5, Basophils % 0.7, Absolute Granulocytes 2.6, Absolute Lymphocytes 2.2, Absolute Monocytes 0.4, Absolute Eosinophils 0.2, Absolute Basophils 0 Assessment/Plan Assessment: Assessment: 83 year old patient had presented to the hospital for slurring of speech, likely TIA. In the hospital patient was admitted in the telemetry and had an episode of Arrhythmia- atrial fib, 1. Afib Assessment/Plan had RVR, hemodynamically stable and Asymptomatic, [id number] Patient is on eliquis RVRCardizem 30 mg per oral 4 times daily converted to Cardizem 120 mg Sustained release Cardiology Suggested BRANDI / cardioversion today The patient went for cardioversion procedure room, she was in sinus rhythm following propofol admninistration. Cardioversion was canceled and the patient was discharged with instructions to monitor HR. 2. TIA (transient ischemic attack) Assessment/Plan Patient is discharged and will follow-up neurology outpatient Carotid ultrasound- stenosis <50% 3. Hypertension DC amlodipine, start hydrochlorothiazide BP is varying between 120/70- 144/80 SHe is discharged on Cardizem slow release capsules 1-120 mg 4. Hyperlipidemia Patient is intolerant to statin, c/o muscle pain Problem List: 1. Afib Pain Ratin Pain Location: none Pain Goal: Remain pain free Pain Plan: none Tomorrow's Labs & Rationales: none Sunil Loaiza MD 06/13/18 1248: Attending MD Review Statement Attending Statement Attending MD Statement: examined this patient, discuss w/resident/PA/VICE PRESIDENT QUALITY, agreed w/resident/PA/VICE PRESIDENT QUALITY, reviewed EMR data (avail) Attending Assessment/Plan: 83F PMH HTN, HLD, presenting initially with 2 episodes of slurred speech with intact neurological exam since admission, found also to be in new onset rapid atrial fibrillation, intermittently in RVR. Patient is currently stable, asymptomatic, normal neuro exam. She remains in atrial fibrillation. MRI head negative. BRANDI done this morning, negative for thrombus. Patient was going into and out of NSR during procedure, so decision was made to not cardiovert at this time. Wiliam to 40's overnight without pauses. Patient is asymptomatic. 1. New onset atrial fibrillation 2. TIA Plan - Continue on telemetry - Transition to Cardizem 120mg ER daily - Continue ASA and Eliquis - Cannot tolerate statin, however would obtain records to see which have been tried - Continue home medications - Anticipated discharge later today or tomorrow, will discuss with cardiology
--- NOTE | 2018-06-13 05:26 | Discharge Summary ---
Visit Information Visit Dates Admission Date: 06/11/18 Discharge Date: 06/13/18 Hospital Course Course Attending Physician: Snuil Loaiza MD Primary Care Physician: Agusto Conte MD Consulting Request: Consulting Specialty: Cardiology Consulting Physician: Brandon Diana Reason for Consult: Atrial Fibrillation Hospital Course: Patient is a 83 year old female with past medical history of atrial tachycardia, chronic LBBB changes on EKG, HTN, HLD who came to the ED after noticing being confused and noted slurred speech. her speech was slurred which lasted approximately [address] Head on admission negative for any acute intracranial pathology. Patient hypertensive in ED at 170/78 with manual blood pressure repeat of 155/75. No focal neurological deficits noted on exam. NIH score 0 in ED. Previous ECHO 2016 EF 60-65%. EMERGENCY DEPARTMENT INVESTIGATION: NIH Score: 0; Passed swallow evaluation at bedside Given loading dose of 325 ASA; KCL in D5 fluids to replete KK+ of 3.7 Vitals: 98.2, 84, 18, 170/78, 97% RA Labs: WBC: 6.4, Hgb: 13.3, HcT: 39.9, Plt: 222 Chemistry: Na: 139, K+ 3.7, Cl 103, CO2 28, BUN 21, Cr 0.7 UA: Negative EKG: SR, 78; Incomplete LBBB; No ST-T wave changes CXR: Chronic appearing changes but no superimposed airspace disease. HEAD CT: No acute intracranial pathology. Nonacute findings as described above. IN telemetry thompson She was admitted to the Telemetry for monitoring and then found also to be in new onset rapid atrial fibrillation, intermittently in RVR. Patient is currently stable, asymptomatic, normal neuro exam. She remains in atrial fibrillation. MRI head negative. Problem list and course- 1. Afib - she had RVR, hemodynamically stable and Asymptomatic, [id number] - Patient is on eliquis - For RVRCardizem 30 mg per oral 4 times daily given for 3 days at hospital converted to Cardizem 120 mg Sustained release Cardiology Suggested BRANDI / cardioversion The patient went for cardioversion procedure room the next day, she was in sinus rhythm following propofol admninistration. Cardioversion was canceled and the patient was discharged with instructions to monitor HR. 2. TIA (transient ischemic attack) SHe did not have any further episodes of TIA Patient was discharged and will follow-up neurology outpatient Carotid ultrasound- stenosis <50% 3. Hypertension DC amlodipine, start hydrochlorothiazide BP is varying between 120/70- 144/80 SHe is discharged on Cardizem slow release capsules 120 mg 4. Hyperlipidemia Allergies: Coded Allergies: Sulfa (Sulfonamide Antibiotics) (UNKNOWN 07/11/17) Disposition Summary Disposition Principal Diagnosis: TIA Atrial Fibrillation Additional Diagnosis: HTN, HLD Discharge Disposition: home or self care Discharge Instructions General Discharge Information Code Status: Full Code Patient's Diet: heart healthy Patient's Activity: as tolerated Follow-Up Instructions/Appts: Please follow up with PCP with in a week of discharge. Please follow up with activities volunteer with in a week of discharge. Please follow up with a neurologist with a month, or if you started getting neurological deficit or stroke like symptoms. Please take the medication as advised. Please watch for the bleeding. May use fitbit for to monitor HR Medications at Discharge Discharge Medications: Stop taking the following medications: Bisoprolol Fumarate/Hctz (Bisoprolol-Hctz 2.5-6.25 MG Tb) 2.5 MG-6.25 MG TABLET ORAL DAILY Qty = 90 Continue taking these medications: Aspirin (Aspirin*) 81 MG TAB.CHEW 1 Tablet ORAL DAILY Qty = 30 Comments: Last Taken: 06/13/18 Time: 8 AM Cyanocobalamin (Vitamin B-12) (Unknown Strength) TABLET Unknown Dose ORAL DAILY Comments: DID NOT RECIEVE Calcium Carbonate/Vitamin D3 (Calcium 500 + D Tablet) (Unknown Strength) TABLET Unknown Dose ORAL DAILY Comments: DID NOT RECIEVE Turmeric Root Extract (Turmeric) (Unknown Strength) CAPSULE Unknown Dose ORAL DAILY Comments: DID NOT RECIEVE Fluticasone Propionate (Fluticasone Propionate) 50 MCG/ACTUATION SPRAY.SUSP 1 [place] Both sides of nose as needed for ALLERGIES Qty = 16 Comments: Last Taken: 06/13/18 Time: 8 AM Escitalopram Oxalate (Escitalopram Oxalate) 10 MG TABLET 0.5 Tablet ORAL DAILY Qty = 90 Comments: Last Taken: 06/12/18 Time: 9 PM Start taking the following new medications: Apixaban (Eliquis) 2.5 MG TABLET 2.5 Milligram ORAL TWICE DAILY Qty = 60 No Refills Instructions: . Comments: Last Taken: 06/13/18 Time: 8 AM Diltiazem Cd (Diltiazem ER) 120 MG CAP.ER.DEG 120 Milligram ORAL DAILY Qty = 30 No Refills Instructions: . Comments: Last Taken: 06/13/18 Time: 12:30 PM Hydrochlorothiazide (Hydrochlorothiazide) 25 MG TABLET 25 Milligram ORAL DAILY Qty = 30 No Refills Instructions: . Comments: DID NOT RECIEVE Copies To: Inés VICTOR,Agusto; David VICTOR,Brandon
[2018-06-13 06:02] VITALS: BP 152/76
[2018-06-13 08:16] LABS: ABSOLUTE BASOPHIL COUNT 0 /CUMM (0.0-0.2); ABSOLUTE EOSINOPHIL COUNT 0.2 /CUMM (0.0-0.7); ABSOLUTE GRANULOCYTE CT 2.6 /CUMM (1.4-6.5); ABSOLUTE LYMPH COUNT 2.2 /CUMM (1.2-3.4); ABSOLUTE MONOCYTE COUNT 0.4 /CUMM (0.10-0.60); BASOPHIL % 0.7 % (0.0-2.0); EOSINOPHIL % 4.5 % (0-5); GRANULOCYTE % 48.1 % (42.2-75.2); HEMATOCRIT 37.9 % (37-47); MEAN CORPUSCULAR HGB 29.9 PG (27.0-31.0); MEAN CORPUSCULAR HGB CONC 34.3 G/DL (33.0-37.0); MEAN CORPUSCULAR VOLUME 87.2 FL (81.0-99.0); MEAN PLATELET VOLUME 9.7 FL (7.4-10.4); PLATELET COUNT 221 /CUMM (130-400); RBC DISTRIBUTION WIDTH 13.6 % (11.5-14.5); RED BLOOD CELL CT 4.35 /CUMM (4.20-5.40); WHITE BLOOD CELL COUNT 5.5 /CUMM (4.8-10.8)
[2018-06-13 08:54] LABS: PT 13.8 SEC (9.4-12.5)
--- NOTE | 2018-06-13 11:20 | PN- Cardiology ---
See Addendum Subjective Subjective: Patient status post BRANDI. Patient denies chest pain, palpitations, dyspnea. Objective Vital Signs and I&Os Vital Signs Date Time Temp Pulse Resp B/P B/P Pulse O2 O2 Flow FiO2 Mean Ox Delivery Rate 06/13 06 97.6 73 16 152/76 96 Room Air 06/13 0553 62 152/76 06/13 0019 79 132/68 06/13 0000 Nasal Cannula 06/12 2132 98.2 79 16 106/60 94 Room Air 06/12 1800 98 110/54 06/12 1444 98.2 98 16 110/54 95 Room Air 06/12 1254 134 142/82 Intake & Output 06/13 1600 06/13 0806/13 0000 06/12 1600 06/12 0806/12 0000 Intake Total 110 400 600 480 Output Total Balance 110 400 600 480 Intake, Oral 110 400 600 480 Number 1 Bowel Movements Physical Exam: General: no apparent distress HEENT: NCAT, NO JVD Heart: s1s2, irregular rhythm, no MRG Lungs: CTA b/l Abd: soft, nt Ext: no peripheral edema Neuro: A&Ox3, no gross focal deficits Current Medications: Current Medications Sig/Ronald Start time Last Medication Dose Route Stop Time Status Admin Acetaminophen 650 MG Q8P PRN 06/10 2100 AC PO Apixaban 2.5 MG BID 06/11 2100 AC 06/13 PO 0759 Aspirin 81 MG DAILY 06/12 09 AC 06/13 PO 0759 Diltiazem HCl 30 MG ONCE ONE 06/12 1245 DC 06/12 PO 06/12 1246 1254 Diltiazem HCl 30 MG Q6 06/12 1200 AC 06/13 PO 0553 Escitalopram Oxalate 5 MG AT BEDTIME 06/10 220 AC 06/12 PO 2009 Fluticasone 1 SPRAY BID 06/10 2100 AC 06/13 Propionate BRICE 0759 Hydrochlorothiazide 25 MG BID PRN 06/13 09 AC PO Hydrochlorothiazide 12.5 MG BID PRN 06/12 0953 DC PO Lidocaine 0 .STK-MED ONE 06/13 0931 DC TOP Results Last 48 Hrs of Labs/Mics: Laboratory Tests 06/13/18 0905: Anion Gap 6, Estimated GFR > 60, BUN/Creatinine Ratio 24.3 06/13/18 0632: PT 13.8 H, INR 1.26 H, CBC w Diff NO MAN DIFF REQ, RBC 4.35, MCV 87.2, MCH 29.9, MCHC 34.3, RDW 13.6, MPV 9.7, Gran % 48.1, Lymphocytes % 39.5, Monocytes % 7.2, Eosinophils % 4.5, Basophils % 0.7, Absolute Granulocytes 2.6, Absolute Lymphocytes 2.2, Absolute Monocytes 0.4, Absolute Eosinophils 0.2, Absolute Basophils 0 Recent Imaging Studies: BRANDI 06/13/2018: normal LV function no LA/MOISÉS thrombus no PFO/ASD/interatrial shunt on 2d imaging, color doppler interrogation, agitated saline injection telemetry personally reviewed: atrial fibrillation, intermittent periods of RVR yesterday, slow ventricular response to as slow as 40s bpm overnight Assessment/Plan Assessment/Plan 1. TIA 2. paroxysmal atrial fibrillation/flutter, newly diagnosed not previously on anticoagulation, currently on low dose eliquis 3. HTN 4. HLD The patient is status post BRANDI this morning. No left atrial appendage or left atrial thrombus was visualized. However patient was in and out of sinus rhythm during BRANDI. No cardioversion was performed. As of now the patient is in atrial fibrillation. Continue with Cardizem; transition to long-acting Cardizem prior to discharge. Blood pressure was elevated overnight. Would increase HCTZ to 25 mg p.o. daily. Continue with low-dose Eliquis. Please ensure the patient has follow-up in our office after discharge. Continue telemetry? Yes
--- NOTE | 2018-06-13 12:48 | Proc Note Cardiology ---
Cardiology Procedure Procedure Date: 06/13/18 Cardiology Procedure(s): BRANDI Pre-Operative Diagnosis: atrial fibrillation Post-Operative Diagnosis: atrial fibrillation Estimated Blood Loss: none Anesthesia: IV propofol as per anesthesia service; probe was lubricated with viscous lidocaine Procedure Findings: Grossly normal LV function. Mild MR. Mild TR. no left atrial or left atrial appendage thrombus. No interatrial shunt/ASD/PFO on 2D imaging, color Doppler, or agitated saline injection. The patient was in and out of normal sinus rhythm and atrial fibrillation during the BRANDI. Due to this no cardioversion was attempted. The patient was in atrial fibrillation following the procedure.
--- NOTE | 2018-06-13 13:11 | ECHOCARDIOGRAM REPORT ---
DERRICK MOREAU Age: 83 : Gender: F 3 Exam Date: 06/13/2018 10:17 Exam Location: [address] Ht (in): 62 Wt (lb): 122 BSA: 1.56 BP: 142 / 58 Ordering Physician: Brandon Hernandez MD Referring Physician: Brandon Hernandez MD Technologist: Ian Otero [facility] Room Number: 174-1 Indications: Persistent atrial fibrillation Rhythm: Atrial fibrillation Technical Quality: Good Medications Ease of Transducer Insertion Complications None. Technical Difficulty FINDINGS Left Ventricle Normal global left ventricular size, wall thickness, systolic function with no obvious regional wall motion abnormalities. Right Ventricle Normal right ventricular size and function. Right Atrium Normal right atrial size. Left Atrium Normal left atrial size. LA Appendage Normal left atrial appendage. No thrombus detected in the left atrial appendage. IA Septum Normal interatrial septum. No interatrial shunt/ASD/PFO seen on 2d imaging, color doppler interrogation, agitated saline injection. Mitral Valve Structurally normal mitral valve. Mild mitral regurgitation. Aortic Valve Structurally normal trileaflet aortic valve. No aortic valve stenosis or sclerosis. No aortic regurgitation. Tricuspid Valve Structurally normal tricuspid valve. Mild tricuspid regurgitation. Pulmonic Valve Structurally normal pulmonic valve. Trace to mild pulmonic regurgitation. Pericardium No pericardial effusion. Great Vessels Normal size aortic root and proximal ascending aorta. Aortic arch normal. CONCLUSIONS Normal global left ventricular size, wall thickness, systolic function with no obvious regional wall motion abnormalities. Normal left atrial appendage. No thrombus detected in the left atrial appendage. Normal interatrial septum. No interatrial shunt/ASD/PFO seen on 2d imaging, color doppler interrogation, agitated saline injection. Dr. Brandon Hernandez (Electronically Signed) Final Date: 13 June 2018 13:05 MEASUREMENTS (Male / Female) Normal Values
[2018-06-13] MEDS ORDERED: DILTIAZEM ER120 M2 PO ×2 (13:37→14:14)
[2018-06-13] MEDS ORDERED: ELIQUIS2.5 M1 PO ×2 (13:45→14:14)
[2018-06-13] MEDS ORDERED: HYDROCHLOROTHIA25 M1 PO ×2 (13:47→14:14)
[2018-06-13] MEDS ORDERED: TYLENOL325 M1 PO (13:48)
[2018-06-13 14:14] VITALS: BP 140/60
== END 2018-06-13 15:00 | DRG 309 ==
LOC: ERH 18:08 → ERHI 20:02 → 1NO 20:02 → ENRESERV 21:05 → ENTRNSPT 22:06 → 1NO 22:32 → DELTRNSPT 22:57 → 1NO 06-11 09:57 → ENPENDDIS 06-13 14:31 → ENTRNSPT 06-13 14:40 → EDTRNSPTSTS 06-13 14:51 → 1NO 06-13 15:00 → CMPTRNSPT 06-13 15:21
PROVIDERS: Emergency Medicine; Internal Medicine; Internal Medicine Adolescent Medicine
PROC: B246ZZ4 Ultrasonography of Right and Left Heart, Transesophageal (ICD-10-PCS; principal; 2018-06-13)
DX: I48.0 Paroxysmal atrial fibrillation (principal); G45.9 Transient cerebral ischemic attack, unspecified; I44.7 Left bundle-branch block, unspecified; I10 Essential (primary) hypertension; I48.92 Unspecified atrial flutter; E78.5 Hyperlipidemia, unspecified; E03.9 Hypothyroidism, unspecified; F41.9 Anxiety disorder, unspecified; Z88.2 Allergy status to sulfonamides
CPT/HCPCS: 1NSP; 70551; 36592; 71045; 81001; 82436; 93005; 93010; 93306; 93325; J1650; J3490

== ENCOUNTER 2018-07-16 16:04 | Emergency (ER) | payer OTHER ==
[~2018-07-16] VITALS: Ht 157.5 cm; Wt 55.3 kg
[~2018-07-16 16:04] MED LIST changes: +BISOPROLOL-HCT1 EACH PO; +CALCIUM 500 +1 EAC5 PO; +DILTIAZEM ER120 M2 PO; +ELIQUIS2.5 M1 PO; +ESCITALOPRAM OX10 MG PO; +FLUTICASONE PRO16 GM NASB; +HYDROCHLOROTHIA25 M1 PO; +PLAVIX75 M1 PO; +TURMERIC500 M2 PO; +TYLENOL325 M1 PO; +VITAMIN B-121000 MC3 PO
[2018-07-16 16:17] VITALS: BP 176/78
--- NOTE | 2018-07-16 16:19 | ED MVC/FALL/TRAUMA COMPLAINT ---
History of Present Illness General Chief Complaint: Fall Stated Complaint: SIB DR. DING FOR CT SCAN OF HEAD Source: patient Exam Limitations: no limitations Vital Signs & Intake/Output Vital Signs & Intake/Output Vital Signs Date Time Temp Pulse Resp B/P B/P Pulse O2 O2 Flow FiO2 Mean Ox Delivery Rate 07/16 1617 97.7 79 18 176/78 98 Room Air Allergies Coded Allergies: Sulfa (Sulfonamide Antibiotics) (UNKNOWN 07/11/17) Reconcile Medications Apixaban (Eliquis) 2.5 MG TABLET 2.5 MG PO BID afib . Aspirin (Aspirin*) 81 MG TAB.CHEW 1 TAB PO DAILY CA Calcium Carbonate/Vitamin D3 (Calcium 500 + D Tablet) (Unknown Strength) TABLET (Unknown Dose) PO DAILY SUPPLEMENT (Reported) Cyanocobalamin (Vitamin B-12) (Unknown Strength) TABLET (Unknown Dose) PO DAILY SUPPLEMENT (Reported) Diltiazem Cd (Diltiazem ER) 120 MG CAP.ER.DEG 120 MG PO DAILY A fib . Escitalopram Oxalate 10 MG TABLET 0.5 TAB PO DAILY ANXIETY (Reported) Fluticasone Propionate 50 MCG/ACTUATION SPRAY.SUSP 1 SPRAY NASB PRN ALLERGIES (Reported) Hydrochlorothiazide 25 MG TABLET 25 MG PO DAILY High blood pressure . Turmeric Root Extract (Turmeric) (Unknown Strength) CAPSULE (Unknown Dose) PO DAILY SUPPLEMENT (Reported) Triage Note: [address] DING FOR HEAD CT DUE TO FALL ON MONDAY WITH HEADSTRIKE, -LOC. PT IS ON ELOQUIS. FOCAL NEUROS INTACT Triage Nurses Notes Reviewed? yes Onset: Abrupt Duration: day(s): Timing: recent history Severity: moderate Injuries/Fall Location: head Method of Injury: fall Loss of Consciousness: no loss of consciousness HPI: 83yo female with hx of a fib on eliquis, HTN sent in by PCP for head CT scan given recent fall. Patient states she tripped over vacuum and fell onto her left paretal scalp 4 days ago. There was no loss of conciousness or black out. Patient saw her PCP today and it was recommended she come to ED for scan. The patient is currently asymptomatic. She denies headaches, visual changes, neck pain, nausea, vomiting, paresthesias. (Fatuma BROWNLEE,Daniella Benson) Past History Travel History Traveled to [place] past 21 day No Medical History Any Pertinent Medical History? see below for history Neurological: NONE EENT: [place] Cardiovascular: hypertension, hyperlipidemia Respiratory: NONE Gastrointestinal: NONE Hepatic: NONE Renal: NONE Musculoskeletal: osteoarthritis Psychiatric: anxiety Endocrine: Reports Clifton's thyroiditis, resolved 5 years ago Blood Disorders: NONE Cancer(s): NONE FINANCIAL COACH/Reproductive: NONE History of MRSA: No History of VRE: No History of CDIFF: No Surgical History Surgical History: tubal ligation Psychosocial History Who do you live with Patient/Self Services at Home None What is your primary language Czech Family History Family History, If Any: FATHER FH: cirrhosis FH: uterine cancer MOTHER FH: bladder cancer SISTER Cervical cancer FH: uterine cancer SON FH: kidney cancer Hx Contributory? No (Daniella Mai) Review of Systems Review of Systems Constitutional: Reports: no symptoms. Eyes: Reports: no symptoms. Ears, Nose, Throat, Mouth: Reports: no symptoms. Respiratory: Reports: no symptoms. Cardiovascular: Reports: no symptoms. Gastrointestinal/Abdominal: Reports: no symptoms. Genitourinary: Reports: no symptoms. Musculoskeletal: Reports: see HPI. Skin: Reports: no symptoms. Neurological/Psychological: Reports: no symptoms. All Other Systems: Reviewed and Negative (Daniella Mai) Physical Exam Physical Exam General Appearance: well developed/nourished, no apparent distress, alert, awake Head: atraumatic, normal appearance Eyes: Bilateral: normal appearance. Ears, Nose, Throat, Mouth: hearing grossly normal Respiratory: no respiratory distress Extremities: normal range of motion Neurologic/Psych: awake, alert, oriented x 3, normal gait, normal mood/affect Skin: intact, normal color, warm/dry Comments: Patient left prior to complete physical exam being performed. Core Measures ACS in differential dx? No CVA/TIA Diagnosis No Sepsis Present: No Sepsis Focused Exam Completed? No (Daniella Mai) Progress Differential Diagnosis: C/T/L spine injury, ICH, spinal cord injury, concussion, fall Plan of Care: Orders Procedure Date/time Status CT HEAD WO IV CONTRAST 07/[address] CERV SPINE WO IV CONTRAST 07/16 1619 Active I evaluated this patient in triage and ordered her CT scan. Patient mentioned something to see physical science technician following scan saying that she believe she could leave after scan being completed. The patient left ED prior to CT scan results or complete physical exam being performed. She received no discharge paperwork. When I evaluated the patient she answered questions readily, was ambulatory with steady gait, was in no acute distress. CT scan is WNL. Findings discussed with Dr. Vann. Diagnostic Imaging: Viewed by Me: CT Scan. Discussed w/RAD: CT Scan. Radiology Impression: PATIENT: DERRICK MOREAU PRESENT AGE: 83 PATIENT ACCOUNT NO: [id number] : 34 LOCATION: [facility] ORDERING PHYSICIAN: Daniella BROWNLEE SERVICE DATE: 07/16/18 EXAM TYPE: CAT - CT CERV SPINE WO IV CONTRAST; CT HEAD WO IV CONTRAST EXAMINATIONS: CT HEAD WITHOUT CONTRAST AND CT CERVICAL SPINE WITHOUT CONTRAST CLINICAL INFORMATION: Pain following fall. Trauma. COMPARISON: 06/10/2018. TECHNIQUE: Contiguous helical images of the brain were obtained without IV contrast. Contiguous helical images of the cervical spine were obtained without IV contrast. Multiplanar reconstructions were performed. DLP: 860 mGy-cm. FINDINGS: There are no pathologic extra-axial fluid collections. The lateral, third, fourth ventricles are prominent, though stable, age-appropriate and concordant with the appearance of the sulci. There is no evidence for acute intraparenchymal hemorrhage or infarct. And there is mild periventricular low- attenuation indicative small vessel disease. There is neither mass nor mass effect. There is no shift of midline structures. The paranasal sinuses and mastoid air cells are clear. There are no osseous lesions. There is a small soft tissue hematoma overlying the high left vertex. The cervical vertebra are in normal alignment. There is disc height loss at C4/C5 and C5/C6. Disc heights and vertebral heights are otherwise well-preserved. There are no fractures. There is no prevertebral soft tissue swelling. There is no cervical lymphadenopathy. The visualized lung apices are clear. IMPRESSION: No evidence for acute intracranial injury. Age-appropriate appearance of the brain. No evidence for acute injury to the cervical spine. Age-appropriate appearance of the cervical spine. DICTATED BY: Pradeep Garibay MD DATE/TIME DICTATED:07/16/181729 BUILDING MAINTENANCE SUPERINTENDENT: DOUG DATE/TIME TRANSCRIBED:07/16/181729 CONFIDENTIAL, DO NOT COPY WITHOUT APPROPRIATE AUTHORIZATION. <Electronically signed in Other Vendor System> SIGNED BY: Pradeep Garibay MD 07/16/18 1738 (Fatuma BROWNLEE,Daniella Benson) Departure Departure Disposition: LEFT AGAINST MEDICAL ADVICE Condition: Stable Clinical Impression Primary Impression: Fall Qualifiers: Encounter type: initial encounter Qualified Code: W19.XXXA - Unspecified fall, initial encounter Secondary Impressions: Head injury Qualifiers: Encounter type: initial encounter Qualified Code: S09.90XA - Unspecified injury of head, initial encounter Referrals: Agusto Ding MD (PCP/Family) Departure Forms: Customer Survey General Discharge Information (Daniella Mai) PA/OVEN DRIER TENDER Co-Sign Statement Statement: ED Attending supervision documentation- [] I saw and evaluated the patient. I have also reviewed all the pertinent lab results and diagnostic results. I agree with the findings and the plan of care as documented in the PA's/OVEN DRIER TENDER's documentation. [X] I have reviewed the ED Record and agree with the PA's/OVEN DRIER TENDER's documentation. [] Additions or exceptions (if any) to the PAs/OVEN DRIER TENDER's note and plan are summarized below: [] (Soo VICTOR,Moncho Mcclendon)
--- NOTE | 2018-07-16 17:38 | CT SCAN REPORT ---
EXAMINATIONS: CT HEAD WITHOUT CONTRAST AND CT CERVICAL SPINE WITHOUT CONTRAST CLINICAL INFORMATION: Pain following fall. Trauma. COMPARISON: 06/10/2018. TECHNIQUE: Contiguous helical images of the brain were obtained without IV contrast. Contiguous helical images of the cervical spine were obtained without IV contrast. Multiplanar reconstructions were performed. DLP: 860 mGy-cm. FINDINGS: There are no pathologic extra-axial fluid collections. The lateral, third, fourth ventricles are prominent, though stable, age-appropriate and concordant with the appearance of the sulci. There is no evidence for acute intraparenchymal hemorrhage or infarct. And there is mild periventricular low-attenuation indicative small vessel disease. There is neither mass nor mass effect. There is no shift of midline structures. The paranasal sinuses and mastoid air cells are clear. There are no osseous lesions. There is a small soft tissue hematoma overlying the high left vertex. The cervical vertebra are in normal alignment. There is disc height loss at C4/C5 and C5/C6. Disc heights and vertebral heights are otherwise well-preserved. There are no fractures. There is no prevertebral soft tissue swelling. There is no cervical lymphadenopathy. The visualized lung apices are clear. IMPRESSION: No evidence for acute intracranial injury. Age-appropriate appearance of the brain. No evidence for acute injury to the cervical spine. Age-appropriate appearance of the cervical spine.
== END 2018-07-16 17:46 | disposition left against medical advice (07) ==
LOC: ERH 16:04
DX: S09.90XA Unspecified injury of head, initial encounter (principal); W19.XXXA Unspecified fall, initial encounter; Y92.9 Unspecified place or not applicable; Y93.9 Activity, unspecified; I10 Essential (primary) hypertension; E78.5 Hyperlipidemia, unspecified; F41.9 Anxiety disorder, unspecified